=== PATIENT | male | born 1940 | race Caucasian/White ===

== ENCOUNTER 2019-11-01 14:51 | Emergency (ER) | payer MEDICARE, OTHER, SELFPAY ==
[2019-11-01 14:54] VITALS: BP 139/97; PULSE 73; PULSE 74; RESP 16; RESP 20; TEMP 36.6; O2SAT 98; BMI 25.5
--- NOTE | 2019-11-01 15:36 | ED.VIS.GEN ---
History of Present Illness Chief Complaint: Fall Informant: Patient Onset: Weeks Context: Sudden Onset Timing: Continuous Quality: Pain Location: Bilateral low back and right inguinal area Current Severity: Mild Worsened by: Nothing specific Relieved by: Tylenol PM Associated Symptoms: Movement Narrative: Patient is an elderly male who fell 2 weeks ago and presents because of persistent bilateral low back pain and right inguinal pain. His major concern is the right inguinal pain. He feels the mesh has moved. He has not noted a bulge or mass. He has no change in bowels with regards to frequency, consistency, color or size. He is still flagellated. He denies dysuria, frequency, urgency or hematuria. He denies paresthesia, anesthesia or motor weakness lower extremities. He denies saddle paresthesia. He denies incontinence of urine or stool. He is not on an anticoagulant. Prior similar symptoms: No Recent Illness/Hospitalization: No - Past Medical History (1) Hypertension Status: Chronic (2) Allergic rhinitis Status: Chronic (3) GERD (gastroesophageal reflux disease) Status: Chronic Past Medical History - Allergies and Home Meds Allergies/Adverse Reactions: Allergies No Known Allergies Allergy (Verified 11/01/19 14:52) Primary Care Physician: Chirag Bingham MD [Primary Care Provider] - Prior records reviewed: Yes Surgical History: noncontributory Lives: Spouse/ Significant Other Smoking Status: Former smoker Alcohol: None Drugs: None Review of Systems General: Denies: Chills, Fever, Malaise, Sweats Cardiovascular: Denies: Chest pain, Palpitations Respiratory: Denies: Dyspnea, Cough, Dyspnea on exertion Gastrointestinal: Denies: Abdominal pain, Nausea, Vomiting, Diarrhea, Melena, Hematochezia Genitourinary: Denies: Dysuria, Hematuria, Frequency Musculoskeletal: Reports: Back pain. Denies: Myalgias, Arthralgias, Neck pain, Swelling, Extremity Pain, -, - Skin: Denies: Rash, Wounds Neurological: Denies: Headache, Weakness, Numbness Psych: Reports: Anxiety Hematologic: Denies: Easy bruising, Easy bleeding Allergy: Denies: Uticaria, Swelling of the mouth, Swelling of the tongue Physical Exam Vital Signs/Narrative: Vital Signs Temp Pulse Resp BP Pulse Ox 11/01/19 14:54 97.8 F 73 20 H 139/97 H 98 Inital Vital Signs reviewed: Yes General: Well nourished, Well developed, No Acute Distress Head: Normocephalic, Atraumatic Eyes: Perrl, EOMI. Negative for: Pale conjunctiva, Scleral icterus ENT: Moist mucous membranes, No rhinorrhea, TM's clear Neck: Supple, Nontender, No lymphadenopathy, No JVD Cardiovascular: Regular rate, Regular rhythm, No murmurs, Normal S1, Normal S2 Respiratory: No distress, CTA bilaterally, Chest nontender Abdomen: Soft, Nontender, Nondistended, Normal bowel sounds, No masses. Negative for: Hyperactive bowel sounds, Hypoactive bowel sounds, Hepatomegaly, Splenomegaly, Pulsatile mass, Inguinal hernia, Umbilical hernia Rectal: Deferred : - - exam is unremarkable. Back: Nontender, Normal Inspection. Negative for: CVA tenderness, Spinal tenderness Extremities: Nontender, No edema Skin: Normal color, No rash Neurological: Alert, Oriented x3, Cranial nerves II-XII grossly intact, Normal Strength, Normal Sensation, - - Is hard of hearing Psychological: Normal affect Diagnostic/Tx/Re-eval - Medical Decision Making With no objective findings and the fact that the fall occurred 2 weeks ago no imaging was obtained. He was instructed to apply ice and take Tylenol since the Tylenol alleviates his pain. He was instructed follow-up with his doctor if he has no improvement in 1 to 2 weeks. ED Disposition - Plan for ED Patient: Disposition: Home or Assisted Living Diagnosis: Bilateral low back pain, Fall with injury, Right inguinal pain Instructions: ED Back Pain Acute or Chronic Referrals: Chirag Bingham MD [Primary Care Provider] - 10-14 Days if not better
== END 2019-11-01 16:21 | disposition home or self-care (01) ==
PROVIDERS: Emergency Provider Emergency Medicine; PCP Internal Medicine
DX: M54.5 Low back pain (principal); R10.30 Lower abdominal pain, unspecified; I10 Essential (primary) hypertension; K21.9 Gastro-esophageal reflux disease without esophagitis; J30.9 Allergic rhinitis, unspecified; Z87.891 Personal history of nicotine dependence; H91.90 Unspecified hearing loss, unspecified ear; Z91.81 History of falling
CPT/HCPCS: 99283

== ENCOUNTER → 2019-11-02 12:48 | Outpatient (CLI) | payer MEDICARE, OTHER, SELFPAY ==
[2019-11-01 14:54] VITALS: BMI 25.5
--- NOTE | 2019-11-02 12:54 | RAD_ITS ---
STUDY: X-RAY - LUMBAR SPINE REASON FOR EXAM: Male, 79 years old. Disc displacement TECHNIQUE: 3 view(s) of the lumbar spine were obtained. COMPARISON: None FINDINGS: Normal lumbar lordosis. There is a mild dextroscoliosis of the lumbar spine. There is a normal alignment of the vertebrae. 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 No prior study is available for comparison. There is multilevel endplate spondylosis of the lumbar vertebrae. There is multi-level degenerative disc disease with multi-level disc space narrowing. Facet joint osteoarthritis. There is atherosclerotic calcification of the abdominal aorta without a demonstrated aneurysm. RAD/Lumbar Spine 2 or 3 Views IMPRESSION: Degenerative changes of the spine, as detailed above. 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 Electronically Signed: Rufino Vazquez, at 14:11 EDT , Service support ,
--- NOTE | 2019-11-02 12:54 | RAD_ITS ---
STUDY: X-RAY - PELVIS AND RIGHT HIP REASON FOR EXAM: Male, 79 years old. PAIN, STRESS FX? TECHNIQUE: 2 views of the pelvis and hip. COMPARISON: None. FINDINGS: There is a non-specific bowel gas pattern. Normal visualized soft tissue structures. Normal bilateral iliac wings, sacroiliac joints and visualized sacrum. Normal bilateral superior and inferior pubic rami. Normal pubic symphysis. Normal bilateral ischial tuberosities. Normal visualized femoral head. Normal acetabulum. Normal hip joint. RAD/HIP, UNI W/ Pelvis 2-3 Views IMPRESSION: Normal x-ray examination of the pelvis and hip. Electronically Signed: Rufino Vazquez, at 14:13 EDT , Service support ,
== END ==
PROVIDERS: PCP Internal Medicine; Referring Provider Internal Medicine; Visit Provider Internal Medicine
DX: M84.350S Stress fracture, pelvis, sequela (principal); M51.26 Other intervertebral disc displacement, lumbar region
CPT/HCPCS: 72100; 73502

== ENCOUNTER 2020-07-31 14:59 | Outpatient (RCR) | payer MEDICARE, OTHER, SELFPAY | END 2020-07-31 23:59 | LOC: IMMUN 14:59 | PROVIDERS: PCP Internal Medicine; Visit Provider Family Medicine | DX: Z23 Encounter for immunization (principal) | CPT/HCPCS: 0011A; 0012A; 91301 ==

== ENCOUNTER 2021-06-03 11:55 | Inpatient (IN) | payer MEDICARE, OTHER, SELFPAY ==
[2021-06-03] VITALS (9 sets, daily range): BP systolic 139–175; BP diastolic 82–137; PULSE 58–74; RESP 13–23; TEMP 35.6–36.5; O2SAT 94–98; BMI 27.1
--- NOTE | 2021-06-03 12:04 | EKG12_ITS ---
Test Reason : CONFUSION Blood Pressure : / mmHG Vent. Rate : 060 BPM Atrial Rate : 060 BPM P-R Int : 186 ms QRS Dur : 232 ms QT Int : 554 ms P-R-T Axes : 003 266 079 degrees QTc Int : 554 ms AV dual-paced rhythm Abnormal ECG Confirmed by RHONDA BROWNE, YESICA ([id number]), associate entertainment editor MICHAEL PERALTA ([id number]) on 06/05/2021 11:40:59 AM Referred By: STEPHANIE Confirmed By:YESICA ELLIS MD
--- NOTE | 2021-06-03 12:04 | CT_ITS ---
STUDY: CT BRAIN WITHOUT CONTRAST REASON FOR EXAM: Male, 81 years old. Confusion RADIATION DOSAGE (If Supplied By Facility): CTDIvol = ( 44.99 ) mGy, DLP = ( 880.47 ) mGycm TECHNIQUE: Transaxial CT imaging of the brain was performed without administration of intravenous contrast material. Individualized dose optimization techniques were used for this CT. COMPARISON: No relevant priors. FINDINGS: Normal soft tissue structures. Normal calvarium. There is moderate cerebral atrophy with widening of the extra-axial spaces and ventricular dilatation. There are areas of decreased attenuation within the white matter tracts of the supratentorial brain, consistent with microvascular disease changes. There are small punctate calcifications of the basal ganglia which are seen in the aging brain as a normal variant. Normal brainstem. Normal cerebellum. There is no intracranial hemorrhage. There are no findings of an acute ischemic infarction. Normal visualized paranasal sinuses. CT/Brain/Head without Contrast IMPRESSION: No acute intracranial hemorrhage or mass effect. Electronically Signed: Epi Das MD ([place]) at 13:01 EST , Service support ,
--- NOTE | 2021-06-03 12:07 | EDS_ITS ---
HPI History of Present Illness Chief Complaint: Confusion Detail of Chief Complaint: Increased confusion that started this morning Informant: patient and EMS Narrative Narrative: Patient presents to the emergency department via EMS from home. Patient apparently has had increased confusion that the noted however is unclear when it began. Patient apparently went to sit in his chair early this morning and then later when the checked on him he seemed confused. Patient denies headache or chest pain or shortness of breath. He generally feels little bit weak. Patient tells me he thinks he is having a thyroid attack because he has had a cough with some green phlegm. Patient has had the Covid vaccine. He denies falls or head injuries. [facility] Medical History Allergic rhinitis GERD (gastroesophageal reflux disease) Hypertension Home Medications cholecalciferol (vitamin D3) 1,000 unit PO DAILY 11/01/19 [History Last Taken Unknown] fluticasone propionate 1 spray NASAL BID 11/01/19 [History Last Taken Unknown] carvedilol 6.25 mg PO BID 06/03/21 [History Last Taken Unknown] furosemide 40 mg PO DAILY 06/03/21 [History Last Taken Unknown] omeprazole 40 mg PO DAILY 06/03/21 [History Last Taken Unknown] rosuvastatin 40 mg PO QHS 06/03/21 [History Last Taken Unknown] Allergy/AdvReac Type Severity Reaction Status Date / Time No Known Allergies Allergy Verified 06/03/21 11:57 Family History Other Arthritis Asthma H/O ulcer disease Heart disease High cholesterol Hypertension Kidney disease Social History (Updated 05/26/21 @ 10:57 by Karla Pedro NP-C) Smoking Status: Unknown if ever smoked alcohol intake: never substance use type: does not use what type of physical activity do you participate in: other ROS ROS ED ROS Narrative Confusion and generalized weakness Constitutional Constitutional ED: Reports systems reviewed and no addt'l complaints, except as documented; Denies body ache(s), change in weight or chills Eyes Eyes: Denies acute decrease in peripheral vision, change in vision, double vision or loss of vision ENT ENT ED: Reports none; Denies ear pain, lip swelling, loss taste/smell, neck pain, otalgia or sore throat Cardiovascular Cardiovascular: Reports none; Denies abdominal pain, chest pain with activity, leg edema, lightheadedness, palpitations, rapid heart rate or syncope Respiratory/Chest Respiratory/Chest: Reports none and cough; Denies change in mental status, dry cough, dyspnea, hemoptysis, shortness of breath at rest or shortness of breath with exertion Gastrointestinal Gastrointestinal: Reports none; Denies abdominal pain, change in stool character, diarrhea, hematemesis, hematochezia, melena, rectal bleeding or vomiting Genitourinary Genitourinary ED: Reports none; Denies abdominal discomfort, anuria, dysuria, genital pain or polyuria Musculoskeletal Musculoskeletal: Reports none; Denies arthralgias, back pain, difficulty walking, extremity pain, muscle weakness or myalgias Integumentary Reports none; Denies abscess or rash Neurologic Neurologic: Reports none; Denies abnormal gait, confusion, focal weakness, frequent falls, headache(s), loss of vision, numbness, paresthesias, radicular pain, vertigo or weakness Psychiatric Psychiatric: Reports systems reviewed and no addt'l complaints, except as documented and none; Denies behavioral changes, confusion, difficulty concentrating, hallucinations, suicidal ideation, tactile hallucinations or visual hallucinations Endocrine Endocrinology: Denies none, cold intolerance, excessive sweating, fatigue or heat intolerance Hematologic/Lymphatic Hematologic/Lymphatic: Reports none; Denies anemia, easy bleeding or easy bruising Allergic/Immunologic Allergic/Immunologic ED: Denies as per HPI, none, lip swelling, mouth swelling, throat swelling, tongue swelling or hives EXAM Physical Exam Const Vital Signs: 06/03/21 11:57 06/03/21 12:26 06/03/21 13:37 Temperature 96.1 F L 96.1 F L 97.0 F L Temperature Source Axillary Axillary Temporal Pulse Rate 60 61 60 Respiratory Rate 13 22 H 23 H Blood Pressure 158/137 H 159/82 H 168/85 H Blood Pressure Mean 144 107 112 Pulse Ox 95 96 94 Oxygen Delivery Method Room Air Room Air Room Air Positive well nourished and well developed General Appearance ED: well developed and NAD HEENT Reports TM's clear and moist mucous membranes normocephalic and atraumatic; Negative for trauma or tenderness Tympanic Membrane ED: Yes TM's clear Eyes PERRL and EOMs intact bilaterally General Eye ED: Negative for pale conjunctiva or scleral icterus Neck no lymphadenopathy, supple and no JVD General: Negative for tenderness Chest Wall inspection of chest normal and palpation of chest normal Chest: Negative for tenderness Resp normal respiratory effort and clear to auscultation bilaterally Effort and Inspection: Negative for respiratory distress or pain with movement Auscultation: Negative for rhonchi, wheezes or diminished lung sounds Cardio regular rate, regular rhythm, S1 normal heart sound, S2 normal heart sound and no murmurs Peripheral Pulses: pulses 2+ throughout GI normal to inspection, nondistended, normoactive bowel sounds, soft to palpation, non-tender, non-distended and no masses Back/Spine no CVA tenderness and no thoracic nor lumbar tenderness Extremity normal to inspection General Extremety ED: Negative for edema General Extremity: Negative for edema Neuro oriented x3, CN's II-XII intact bilaterally, no sensory deficits noted and gait normal Neuro Narrative: Patient ANO x3 on arrival to emergency department. No focal neurologic deficits noted with an NIH of zero. Patient does at times repeat the same question over again. Sensorium / Orientation: awake, alert, oriented to person, oriented to place and oriented to time Motor Exam: strength 5/5 throughout and strength abnormal Psych mental status grossly normal Skin no rashes or lesions noted and no wounds MDM MDM MDM Narrative Medical decision making narrative: IV line established on arrival. CT scan of the brain without contrast was unremarkable. Patient was noted to have an elevated troponin although he is not having any chest pain and EKG is difficult to interpret at this it is dual paced. Patient was given baby aspirin. Patient was started on Rocephin and Zithromax as well as chest x-ray that showed a right lower lobe infiltrate and he has been coughing. Covid test was negative. Blood cultures ordered and pending. Lactate ordered and pending. Case discussed with hospitalist will evaluate patient for admission. Lab Data Attestation: I reviewed the patient's lab results. Labs: Laboratory Results - last 24 hr 06/03/21 06/03/21 06/03/21 12:19 12:19 12:37 WBC 6.7 RBC 4.61 Hgb 13.8 Hct 44.2 MCV 95.9 H MCH 29.9 MCHC 31.2 L RDW Std Deviation 51.0 H RDW Coeff of Giovani 14.6 Plt Count 176 MPV 10.3 Immature Gran % (Auto) 0.400 Neut % (Auto) 71.6 H Lymph % (Auto) 16.4 L [place] % (Auto) 6.1 Eos % (Auto) 5.1 H Baso % (Auto) 0.4 Absolute Neuts (auto) 4.8 Absolute Lymphs (auto) 1.10 Nucleated RBC % 0 Sodium 144 Potassium 3.7 Chloride 108 H Carbon Dioxide 25.0 Anion Gap 11 BUN 39 H Creatinine 1.64 H Estim Creat Clear Calc 34.73 Est GFR (MDRD) Af Amer 52 L Est GFR (MDRD) Non-Af 43 L BUN/Creatinine Ratio 23.8 H Glucose 99 Calcium 8.8 Troponin I High Sens 196 H* Urine Color Yellow Urine Clarity Clear Urine pH 5.0 Ur Specific [place] 1.020 Urine Protein 30 H Urine Glucose (UA) Normal Urine Ketones Negative Urine Occult Blood Negative Urine Nitrite Negative Urine Bilirubin Negative Urine Urobilinogen Normal Ur Leukocyte Esterase Negative Urine RBC 0 SEEN Urine WBC 0-5 SEEN Ur Squamous Epith Cells 0 SEEN Urine Bacteria 0 SEEN Hyaline Casts 0-5 SEEN Urine Mucus 0 SEEN Radiography Diagnostic Testing: Clinical Impression(s) from Imaging Studies Brain CT 06/03/21 12:04 IMPRESSION: No acute intracranial hemorrhage or mass effect. Electronically Signed: Epi Das MD ([place]) at 13:01 EST , Service support , Chest X-Ray 06/03/21 12:49 IMPRESSION: 1. Right lower lobe infiltrate suggesting pneumonia. Electronically Signed: Epi Das MD ([place]) at 13:04 EST , Service support , 1 view chest x-ray interpreted by myself as right lower lobe infiltrate. Radiology was in agreement. EKG Initial EKG: Attestation: I personally reviewed and interpreted this EKG as follows: Comments: AV dual paced rhythm Discharge Plan Triage Chief Complaint: Confusion ED Provider: Armin Betts Dx/Rx/DC Orders Clinical Impression: Acute confusion, Non-ST elevated myocardial infarction, Pneumonia Prescriptions: No Action fluticasone propionate 1 SPRAY spray,suspension 1 spray NASAL BID RF: 0 cholecalciferol (vitamin D3) 1,000 UNIT tablet 1,000 unit PO DAILY RF: 0 furosemide 40 mg tablet 40 mg PO DAILY RF: 0 carvedilol 6.25 mg tablet 6.25 mg PO BID RF: 0 omeprazole 40 mg capsule,delayed release(DR/EC) 40 mg PO DAILY RF: 0 rosuvastatin 40 mg tablet 40 mg PO QHS RF: 0 Primary Care Provider: Chirag Bingham Referrals: Chirag Bingham MD [Primary Care Provider] - Disposition Disposition: Acute Care Hospital [facility]
[2021-06-03 12:48] LABS: Bacteria 0 SEEN /hpf (None Seen); Mucous, Urine 0 SEEN /hpf (<or=2+); Red Blood Cells-Urine 0 SEEN /hpf (0-5); Squamous Epithelial Cells - UA 0 SEEN /hpf (0-5)
--- NOTE | 2021-06-03 12:49 | RAD_ITS ---
STUDY: X-RAY CHEST REASON FOR EXAM: Male, 81 years old. cough TECHNIQUE: AP COMPARISON: None FINDINGS: Three lead cardiac conduction device is seen via the left subclavian vein with lead tips projecting over the right atrium and right ventricle, respectively, with left atrial lead projecting over the left atrium/posterior cardiac border. Asymmetric opacity in the medial right lower lobe, compared to the left side. There is no demonstrated pleural abnormality. Normal size heart. Normal mediastinum and bernadette. Normal visualized pulmonary arteries. There is atherosclerotic calcification of the aortic arch with tortuosity. No acute bony process. There is no demonstrated abnormality of the visualized soft tissue structures of the upper abdomen. RAD/Chest 1 View (Portable) IMPRESSION: 1. Right lower lobe infiltrate suggesting pneumonia. Electronically Signed: Epi Das MD ([place]) at 13:04 EST , Service support ,
[2021-06-03 12:51] LABS: Absolute Neutrophil Count 4.8 X10^3/uL (2.0-7.7); Basophil# 0.03 X10^3/uL; Basophil% 0.4 % (0-1); Eosinophil# 0.34 X10^3/uL; Eosinophils% 5.1 % (0-5); Hematocrit 44.2 % (40-54); Hemoglobin 13.8 g/dL (13.0-16.5); Lymphocyte % 16.4 % (19-41); Mean Corp Hgb Conc 31.2 g/dL (32-36); Mean Corpuscular Hgb 29.9 pg (27.0-32.0); Mean Corpuscular Volume 95.9 fL (80-94); Mean Platelet Vol. 10.3 fl (6.2-12.0); Monocyte# 0.41 X10^3/uL; Monocyte% 6.1 % (0-10); NRBC Flagged by Analyzer 0 % (0-5); Neutrophil # 4.81 X10^3/uL (2.7-7.7); Neutrophil % 71.6 % (47-70); Platelet Count 176 K/mm3 (150-450); RBC Distribution Width CV 14.6 % (11.6-14.6); Red Blood Count 4.61 M/mm3 (4.6-6.2); White Blood Count 6.7 K/mm3 (4.4-11.0)
[2021-06-03 12:52] LABS: Color, Urine Yellow (Yellow); Glucose, Dipstick Normal (Normal); Ketone-Dipstick Negative (Negative); Leukocyte Esterase-Dipstick Negative /ul (Negative); Nitrite-Dipstick Negative (Negative); Occult Blood-Urine Negative /ul (Negative); Protein-Dipstick 30 mg/dl (Negative); Urine Bilirubin Dipstick Negative (Negative); Urine Clarity Clear (Clear); Urine Urobilinogen Normal (Normal)
[2021-06-03 12:58] LABS: Hyaline Cast 0-5 SEEN /lpf (0-5); White Blood Cells 0-5 SEEN /hpf (0-5)
[2021-06-03] MEDS: 0.9% Normal Saline 1,000 ML 150 ML IV (13:00)
[2021-06-03 13:11] LABS: Anion Gap 11 (5-15); BUN 39 mg/dL (7-18); BUN/Creat Ratio 23.8 RATIO (10-20); Calcium,Total 8.8 mg/dL (8.5-10.1); Chloride 108 mmol/L (98-107); Creatinine, Serum 1.64 mg/dL (0.70-1.30); EST Glomerular Filtration Rate 43 mL/min (>60); Est Glom Filt Rate - Afr Amer 52 mL/min (>60); Estimated Creatinine Clearance 34.73 ml/min; Glucose 99 mg/dL (74-106); Potassium 3.7 mmol/L (3.5-5.1); Sodium Level 144 mmol/L (136-145); Troponin-I HS 196 pg/mL (3.0-78.0)
[2021-06-03] MEDS: Aspirin 81 MG TAB.CHEW 324 MG PO (13:35)
--- NOTE | 2021-06-03 13:41 | PCM.HP.STD ---
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 ED on 06/03/21 with history of being brought in via EMS from home secondary to confusion, onset while he was seated in his chair, repeating the same questions over and over again, noted last well reportedly appropriate earlier in the AM. Upon ED presentation he was appropriate with orientation x > 3 but reported having had recent onset of cough, fatigue, malaise. Upon ED evaluation patient still confused even with appropriate answer to orientation questions thus may be waxing and waning. denies any recent fevers or chills, nausea, emesis, diarrhea. Work-up in the ED included T 97, heart rate 60, BP 160/85, respiratory rate 23, 94% on room air, CBC with WBC 6.7, hemoglobin 13.8, platelet 176 without marked shift, BMP with chloride 108, BUN/creatinine 39/1.64, troponin high-sensitivity initial 196, chest x-ray with right lower lobe infiltrate suggestive of pneumonia, CT of the brain with no acute intracranial hemorrhage or mass-effect, blood culture x2 pending per ED. in the ED patient ministered Ceftin and azithromycin. [facility] Medical History (Updated 06/03/21 @ 14:[address] Elena Neely MD) Allergic rhinitis GERD (gastroesophageal reflux disease) HLD (hyperlipidemia) Hypertension Tachy-thomas syndrome Home Medications cholecalciferol (vitamin D3) 1,000 unit PO DAILY 11/01/19 [History Last Taken Unknown] fluticasone propionate 1 spray NASAL BID 11/01/19 [History Last Taken Unknown] acetaminophen 500 - 1,000 mg PO Q6H PRN 06/03/21 [History Last Taken 06/03/21] carvedilol 6.25 mg PO BID 06/03/21 [History Last Taken Unknown] furosemide 40 mg PO DAILY 06/03/21 [History Last Taken Unknown] omeprazole 40 mg PO DAILY 06/03/21 [History Last Taken Unknown] polyethylene glycol 3350 [Miralax] 17 g PO DAILY 06/03/21 [History Last Taken 06/03/21] rosuvastatin 40 mg PO QHS 06/03/21 [History Last Taken Unknown] Allergy/AdvReac Type Severity Reaction Status Date / Time No Known Allergies Allergy Verified 06/03/21 11:57 Family History (Updated 06/03/21 @ 14:[address] Elena Neely MD) Mother Heart disease Arthritis Asthma High cholesterol Hypertension Father Heart disease Arthritis Asthma High cholesterol Hypertension Other H/O ulcer disease Kidney disease Surgical History (Updated 06/03/21 @ 14:[address] Elena Neely MD) S/P cardiac pacemaker procedure Social History (Updated 06/03/21 @ 14:[address] Elena Neely MD) household members: spouse Smoking Status: Never smoker alcohol intake: never substance use type: does not use what type of physical activity do you participate in: other ROS ROS Narrative Admission Review of Systems: CONSTITUTIONAL: No weight loss, fever, chills, + weakness or fatigue. HEENT: Eyes: No visual loss, blurred vision, double vision or yellow sclerae. Ears, Nose, Throat: No hearing loss, sneezing, congestion, runny nose or sore throat. SKIN: No rash or itching, lesions, wounds. CARDIOVASCULAR: No chest pain, chest pressure or chest discomfort, palpitations, edema, orthopnea, syncopal events. RESPIRATORY: + shortness of breath, cough with moderate sputum, No wheezing, hemoptysis. GASTROINTESTINAL: + anorexia, No nausea, vomiting or diarrhea, abdominal pain, melena, BRBPR. GENITOURINARY: No dysuria, frequency, urgency or retention. NEUROLOGICAL: No headache, dizziness, syncope, paralysis, ataxia, numbness or tingling in the extremities, focal weakness, change in bowel or bladder control, seizure. MUSCULOSKELETAL: + muscle, back pain, joint pain or stiffness. HEMATOLOGIC: No anemia, bleeding or bruising. LYMPHATICS: No enlarged nodes. No history of splenectomy. PSYCHIATRIC: No history of depression or anxiety. ENDOCRINOLOGIC: No reports of sweating, cold or heat intolerance. No polyuria or polydipsia. ALLERGIES: No history of asthma, hives, eczema or rhinitis. Vital Signs Vital Signs Vital Signs: 06/03/21 11:57 06/03/21 12:26 06/03/21 13:37 Temperature 96.1 F L 96.1 F L 97.0 F L Temperature Source Axillary Axillary Temporal Pulse Rate 60 61 60 Respiratory Rate 13 22 H 23 H Blood Pressure 158/137 H 159/82 H 168/85 H Blood Pressure Mean 144 107 112 Pulse Ox 95 96 94 Oxygen Delivery Method Room Air Room Air Room Air Weight Weight: 183 lb 10.321 oz Body Mass Index (BMI) 27.1 Physical Exam Narrative Physical Examination: General: Awake, alert, oriented to self, place and some recent events but still appears confused although transiently did return to baseline per ED physician but this was only to some orientation questions and when you ask further he does appear still to be encephalopathic, remains cooperative and following commands, no acute distress. Skin: Normal color, normal turgor, no icterus, no cyanosis. HEENT: AT/NC, EOMI, PERRLA, mildly dry MM, no carotid bruits or JVD noted. Lungs: Diminished, greater bases, right greater than left, mildly increased respiratory rate, no rales, ronchi or wheezing. Heart: Paced; no gallop, rub audible. Abdomen: Soft, overweight, NTTP, ND, distant mildly hyperactive BS, no HSM. Extremities: No cyanosis, no clubbing, chronic bilateral lower extremity edema, right greater than left w/ ankle to [place] 2+. Neurological: Patient awake, alert, oriented as noted above, cognitive function suspect not baseline intact but improving; pupils equally reactive to light and accommodation, cranial nerves II-XII grossly normal, moving all 4 extremities, no focal deficits, strength moderately to severely global decreased. Psychiatric: Affect appears fatigued otherwise normal, no acute evidence of depressive or anxiety feelings. Results Lab / Micro Data Result Diagrams: 06/03/21 12:19 06/03/21 12:19 Labs: Laboratory Results - last 24 hr 06/03/21 12:19: WBC 6.7, RBC 4.61, Hgb 13.8, Hct 44.2, MCV 95.9 H, MCH 29.9, MCHC 31.2 L, RDW Std Deviation 51.0 H, RDW Coeff of Giovani 14.6, Plt Count 176, MPV 10.3, Immature Gran % (Auto) 0.400, Neut % (Auto) 71.6 H, Lymph % (Auto) 16.4 L, [place] % (Auto) 6.1, Eos % (Auto) 5.1 H, Baso % (Auto) 0.4, Absolute Neuts (auto) 4.8, Absolute Lymphs (auto) 1.10, Nucleated RBC % 0 06/03/21 12:19: Sodium 144, Potassium 3.7, Chloride 108 H, Carbon Dioxide 25.0, Anion Gap 11, BUN 39 H, Creatinine 1.64 H, Estim Creat Clear Calc 34.73, Est GFR (MDRD) Af Amer 52 L, Est GFR (MDRD) Non-Af 43 L, BUN/Creatinine Ratio 23.8 H, Glucose 99, Calcium 8.8, Troponin I High Sens 196 H* 06/03/21 12:37: Urine Color Yellow, Urine Clarity Clear, Urine pH 5.0, Ur Specific [place] 1.020, Urine Protein 30 H, Urine Glucose (UA) Normal, Urine Ketones Negative, Urine Occult Blood Negative, Urine Nitrite Negative, Urine Bilirubin Negative, Urine Urobilinogen Normal, Ur Leukocyte Esterase Negative, Urine RBC 0 SEEN, Urine WBC 0-5 SEEN, Ur Squamous Epith Cells 0 SEEN, Urine Bacteria 0 SEEN, Hyaline Casts 0-5 SEEN, Urine Mucus 0 SEEN Micro: Microbiology 06/03/21 12:35 Nasal Secretion SARS-CoV-2 Antigen (Rapid) - Final Radiology Impression Brain CT 06/03/21 12:04 IMPRESSION: No acute intracranial hemorrhage or mass effect. Electronically Signed: Epi Das MD (Brooks) at 13:01 EST , Service support , Chest X-Ray 06/03/21 12:49 IMPRESSION: 1. Right lower lobe infiltrate suggesting pneumonia. 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 ED on 06/03/21 with history of being brought in via EMS from home secondary to confusion, onset while he was seated in his chair, repeating the same questions over and over again, noted last well reportedly appropriate earlier in the AM with eventually reported fatigue, malaise, cough. #1. Acute Encephalopathy secondary to Acute Pneumonia, some concern for possible aspiration: CXR in the ED w/ right lower lobe infiltrate suggestive of pneumonia. Will admit to PCU given #2, maintain on oxygen with wean as tolerated to room air, PRN albuterol, maintained on IV Zosyn pending Speech assessment, HOB, IS parameters w/ pending sputum cultures and urine antigens as well as full respiratory viral panel and COVID PCR to be cautious although has been vaccinated. Bld cx x 2 obtained in the ED. Procalcitonin requested. #2. Indeterminate cardiac enzyme: EKG in ED paced, CXR w/ RLL infiltrate, initial trop 196. Will place on a monitored bed to assure no acute myocardial infarction with serial cardiac enzymes and EKGs. Mag pending. FLP in AM. Will maintain on heparin drip until clear where his enzymes are trending. ECHO requested. ASA, NG, morphine. #3. Hypertension: Continue home regimen including Coreg, Lasix however low threshold to hold given unclear underlying renal disease, if function worsens will hold nephrotoxic regimen, PRN hydralazine. #4. Hyperlipidemia: Continue home statin regimen. AM FLP. #5. Chronic Kidney Disease stage III unclear subtype versus ARCADIO: Admission BUN/Cr 39/1.64, baseline renal function unknown, repeat BMP in AM. #6. GERD: We will continue patient home PPI. #7. 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 Duke per report, s/p pacemaker, placed ~ 1 year prior to current visit. #8. DVT prophylaxis: SCDs, heparin drip. #9. CODE status: Patient not sure that there is an actual HCPOA or living will in place. Given confusion and current presentation, discussed CODE status at length including difference between FULL code, DNR-CCA and DNR-CC status. Following discussions about the differences in these status, requested Full Code status. Advanced Care Planning Face to Face Time: 16 minutes. Charges/Coding Visit Charges Inpatient E&M: 95195 Init Hosp L3 Procedures Hospitalists Procedures: 81140 Advncd Care Plan 30 Min
--- NOTE | 2021-06-03 14:03 | NURSING ---
PCU WHITE NSTEMI, PNEUMONIA, CONFUSION
[2021-06-03 14:07] LABS: Lactic Acid 1.4 mmol/L (0.4-1.9)
[2021-06-03] MEDS: Ceftriaxone 1 GM/50 ML BAG IV (14:21)
[2021-06-03 14:39] LABS: Magnesium 2.6 mg/dL (1.6-2.6)
[2021-06-03 14:46] LABS: International Normalized Ratio 1.2; Partial Thromboplast Time 31.3 Seconds (24.1-36.2); Prothrombin Time (Protime)PT. 14.8 SECONDS (11.7-14.9)
[2021-06-03 15:02] LABS: Procalcitonin 0.16 ng/mL (0.00-0.09)
--- NOTE | 2021-06-03 15:03 | VDLE_ITS ---
Reason For Study: Swelling RIGHT GSV is normal. CFV is compressible, spontaneous, phasic, competent and demonstrates normal augmentation. FV is compressible, spontaneous, phasic, competent and demonstrates normal augmentation. POP V is compressible, spontaneous, phasic, competent and demonstrates normal augmentation. T/P Trunk is compressible. PTV is compressible. RT PerV is compressible. Procedure This is a venous duplex using B-mode, color flow and spectral Doppler. Exam performed portable in patient room. A preliminary report was called and/or faxed to Nancy AGUIRRE. VL/Venous Duplex US, Unilateral Interpretation Summary There is no evidence of right lower extremity deep vein thrombosis. Right great saphenous vein appears patent and compressible segmentally. Suggestion of pulsitile venous marina w consistent with proximal venous hypertension or obstruction. Clinical correlation would be appr opriate. Ordering Physician: Elena Neely Referring Physician: Chirag Bingham Performed By: Hanh Reyes, RASHAD, RVT
--- NOTE | 2021-06-03 15:03 | ECHOD_ITS ---
Reason For Study: NSTEMI Procedure This was a 2D Doppler, Color Flow transthoracic echocardiogram. Exam performed portable in patient room. Left Ventricle Normal LV size. Severe concentric left ventricular hypertrophy. The estimated ejection fraction is 20 %. There is severe global hypokinesis of the left ventricle. Right Ventricle Normal RV size. ICD or pacer leads identified within the right ventricle. Normal systolic function. Atria The left atrium is moderately enlarged. The right atrium is moderately enlarged. Mitral Valve Normal mitral valve. Mild (1+) eccentric mitral valve insufficiency. Tricuspid Valve Normal tricuspid valve. Mild (1+) tricuspid valve insufficiency. Pulmonary artery systolic pressure is 34 mmHg. Aortic Valve Trisinus/trileaflet aortic valve. Peak aortic valve gradient 21 mmHg. Mean aortic valve gradient 10 mmHg. Mild (1+) aortic valve insufficiency. Pulmonic Valve Normal pulmonic valve. Great Vessels Normal aortic root. The pulmonary artery is normal size. The inferior vena cava is dilated. Pericardium/Pleural No pericardial effusion. MMode/2D Measurements & Calculations LVIDd: 5.4 cm IVSd: 1.8 cm LVOT diam: 2.0 cm LVIDs: 5.2 cm LVPWd: 1.9 cm LVOT area: 3.0 cm2 FS: 4.5 % LAV(MOD-bp): 98.9 ml LA A4 area: 27.0 cm2 RA A4 area: 27.1 cm2 LAV(MOD-bp) Indexed: 49.7 ml/m2 LAV(MOD-sp2): 101.2 ml LAV(MOD-sp4): 95.0 ml Time Measurements MV dec time: 0.21 sec Doppler Measurements & Calculations MV E max jamir: 73.3 cm/sec MV V2 max: 68.6 cm/sec MV P1/2t max jaimr: 68.9 cm/sec MV A max jamir: 50.6 cm/sec MV max P.9 mmHg MV P1/2t: 73.0 msec MV E/A: 1.4 MV V2 mean: 31.5 cm/sec MV dec slope: 276.6 cm/sec2 MV mean P.49 mmHg MVA(P1/2t): 3.0 cm2 MV V2 VTI: 18.7 cm MVA(VTI): 2.2 cm2 Ao V2 max: 229.5 cm/sec AI max jamir: 397.4 cm/sec LV V1 max: 75.6 cm/sec Ao max P.1 mmHg AI max P.2 mmHg LV V1 max P.3 mmHg Ao V2 mean: 140.3 cm/sec AI dec slope: 268.3 cm/sec2 LV V1 mean P.0 mmHg Ao mean P.7 mmHg AI P1/2t: 433.9 msec LV V1 mean: 46.6 cm/sec Ao V2 VTI: 39.6 cm LV V1 VTI: 13.8 cm JENNIFER(I,D): 1.1 cm2 JENNIFER(V,D): 1.00 cm2 SV(LVOT): 41.7 ml PA V2 max: 67.2 cm/sec TR max jamir: 270.8 cm/sec TR max P.4 mmHg ECHO/Echo Complete Interpretation Summary Normal LV size. Severe concentric left ventricular hypertrophy. The estimated ejection fraction is 20 %. There is severe global hypokinesis of the left ventricle. The left atrium is moderately enlarged. The right atrium is moderately enlarged. Pulmonary artery systolic pressure is 34 mmHg. Mild (1+) aortic valve insufficiency. Ordering Physician: Elena Neely Referring Physician: Chirag Bingham Performed By: Satnam Allen RCS
[2021-06-03] MEDS: 0.9% Normal Saline 1,000 ML 100 ML IV (15:38)
--- NOTE | 2021-06-03 15:49 | PCS.PANDOC ---
PANDEMIC DOCUMENTATION INITIATED: Date: 02/23/2021 Time: 190
[2021-06-03] MEDS: Heparin Injection (Vial) 5,000 UNIT/ML VIAL 6000 UNIT IV (16:31)
[2021-06-03] MEDS: HEPARIN/D5w 25,000 UNITS 25,000 UNITS/250 ML IV.SOLN. 12 UNITS IV (16:33)
[2021-06-03 16:36] LABS: Troponin-I HS 178 pg/mL (3.0-78.0)
[2021-06-03 20:46] LABS: Troponin-I HS 137 pg/mL (3.0-78.0)
[2021-06-03] MEDS: Fluticasone 0.05% 1 SPRAY NASAL.SRY NASAL (21:45)
[2021-06-03] MEDS: Atorvastatin Calcium 80 MG Tablet PO (21:45)
[2021-06-03] MEDS: Acetaminophen 325 MG Tablet 650 MG PO (21:48)
--- NOTE | 2021-06-03 22:21 | PCM.PN.BLA ---
Progress Note Nurse reports bright red blood per rectum while the patient's was on heparin drip. High-sensitivity troponin is marginally elevated. Will stop heparin drip. Change Protonix 40 mg p.o. daily to Protonix IV twice daily. CBC already scheduled in the a.m., continued.
[2021-06-03] MEDS: Carvedilol 6.25 MG Tablet PO (23:36)
[2021-06-04] VITALS (9 sets, daily range): BP systolic 132–160; BP diastolic 73–92; PULSE 60–114; RESP 16–18; TEMP 36.2–37; O2SAT 94–100
[2021-06-04] MEDS: DiphenhydrAMINE 25 MG Capsule PO ×2 (01:53→20:18)
[2021-06-04] MEDS: Acetaminophen 325 MG Tablet 650 MG PO ×2 (01:53→20:18)
--- NOTE | 2021-06-04 05:55 | EKG12_ITS ---
Test Reason : AM EKG Blood Pressure : / mmHG Vent. Rate : 060 BPM Atrial Rate : 060 BPM P-R Int : 172 ms QRS Dur : 234 ms QT Int : 582 ms P-R-T Axes : 073 -82 102 degrees QTc Int : 582 ms Atrial-paced rhythm Right bundle branch block Left anterior fascicular block Bifascicular block Left ventricular hypertrophy with repolarization abnormality Abnormal ECG When compared with ECG of 03-JUN-2021 12:20, MANUAL COMPARISON REQUIRED, DATA IS UNCONFIRMED Confirmed by RHONDA BROWNE, YESICA ([id number]), tape editor MICHAEL PERALTA ([id number]) on 06/05/2021 11:52:23 AM Referred By: SYLWIA Confirmed By:YESICA ELLIS MD
[2021-06-04 06:07] LABS: Absolute Lymphocyte Count 1.06 X10^3/uL (0.83-4.51); Absolute Neutrophil Count 3.6 X10^3/uL (2.0-7.7); Basophil# 0.05 X10^3/uL; Basophil% 0.9 % (0-1); Eosinophil# 0.29 X10^3/uL; Eosinophils% 5.3 % (0-5); Hematocrit 41.5 % (40-54); Hemoglobin 13.1 g/dL (13.0-16.5); Lymphocyte # 1.06 X10^3/ul (0.83-4.51); Lymphocyte % 19.5 % (19-41); Mean Corp Hgb Conc 31.6 g/dL (32-36); Mean Corpuscular Hgb 29.9 pg (27.0-32.0); Mean Corpuscular Volume 94.7 fL (80-94); Mean Platelet Vol. 10.4 fl (6.2-12.0); Monocyte# 0.41 X10^3/uL; Monocyte% 7.5 % (0-10); NRBC Flagged by Analyzer 0 % (0-5); Neutrophil # 3.61 X10^3/uL (2.7-7.7); Neutrophil % 66.4 % (47-70); Platelet Count 154 K/mm3 (150-450); RBC Distribution Width CV 14.4 % (11.6-14.6); RBC Distribution Width SD 49.6 fl (35.1-43.9); Red Blood Count 4.38 M/mm3 (4.6-6.2); White Blood Count 5.4 K/mm3 (4.4-11.0)
--- NOTE | 2021-06-04 06:22 | RAD_ITS ---
STUDY: X-RAY CHEST REASON FOR EXAM: Male, 81 years old. Dyspnea, PNA TECHNIQUE: Single AP portable view of the chest. COMPARISON: 06/03/2021 FINDINGS: There is a multilead permanent pacemaker. There are superimposed monitor leads. Hazy opacification in the right lung base. Slightly more pronounced since previous examination. Mild vascular prominence in the upper lung parenchyma. There is no demonstrated pleural abnormality. There is moderate cardiac enlargement. Normal mediastinum and bernadette. Normal visualized pulmonary arteries. There is atherosclerotic calcification of the aortic arch with tortuosity. The spine and upper abdominal soft tissues are obscured. RAD/Chest 1 View (Portable) IMPRESSION: Airspace disease right base slightly more pronounced. Possible mild congestion. Stable cardiomegaly, atherosclerosis and post surgical changes. Electronically Signed: Pauline Finley MD at 9:02 EST , Service support ,
--- NOTE | 2021-06-04 06:29 | PN.HOSP_ITS ---
Objective Data Objective Data Vital Signs: Vital Signs Temp Pulse Resp BP Pulse Ox 97.7 F L 60 18 153/91 H 94 06/04/21 03:55 06/04/21 03:55 06/04/21 03:55 06/04/21 03:55 06/04/21 03:55 Oxygen Flow Rate (L/min) 2 Oxygen Delivery Method Nasal Cannula Weight: 179 lb 14.355 oz Body Mass Index (BMI) 27.1 Intake & Output: Intake and Output for Last 24 Hours 06/02/21 06/03/21 06/04/21 23:59 23:59 23:59 Intake Total 807.7 / 1217.7 1460 / 1460 Balance 807.7 / 1217.7 1460 / 1460 Lab / Micro Data Result Diagrams: 06/04/21 05:22 06/03/21 12:19 Labs: Laboratory Results - last 24 hr 06/03/21 12:19: WBC 6.7, RBC 4.61, Hgb 13.8, Hct 44.2, MCV 95.9 H, MCH 29.9, MCHC 31.2 L, RDW Std Deviation 51.0 H, RDW Coeff of Giovani 14.6, Plt Count 176, MPV 10.3, Immature Gran % (Auto) 0.400, Neut % (Auto) 71.6 H, Lymph % (Auto) 16.4 L, [place] % (Auto) 6.1, Eos % (Auto) 5.1 H, Baso % (Auto) 0.4, Absolute Neuts (auto) 4.8, Absolute Lymphs (auto) 1.10, Nucleated RBC % 0 06/03/21 12:19: Sodium 144, Potassium 3.7, Chloride 108 H, Carbon Dioxide 25.0, Anion Gap 11, BUN 39 H, Creatinine 1.64 H, Estim Creat Clear Calc 34.73, Est GFR (MDRD) Af Amer 52 L, Est GFR (MDRD) Non-Af 43 L, BUN/Creatinine Ratio 23.8 H, Glucose 99, Calcium 8.8, Troponin I High Sens 196 H* 06/03/21 12:19: Lactic Acid 1.4 06/03/21 12:19: PT 14.8, INR 1.2, APTT 31.3 06/03/21 12:19: Magnesium 2.6 06/03/21 12:19: Procalcitonin 0.16 H 06/03/21 12:37: Urine Color Yellow, Urine Clarity Clear, Urine pH 5.0, Ur Specific [place] 1.020, Urine Protein 30 H, Urine Glucose (UA) Normal, Urine Ketones Negative, Urine Occult Blood Negative, Urine Nitrite Negative, Urine Bilirubin Negative, Urine Urobilinogen Normal, Ur Leukocyte Esterase Negative, Urine RBC 0 SEEN, Urine WBC 0-5 SEEN, Ur Squamous Epith Cells 0 SEEN, Urine Bacteria 0 SEEN, Hyaline Casts 0-5 SEEN, Urine Mucus 0 SEEN 06/03/21 15:49: Troponin I High Sens 178 H* 06/03/21 16:36: COVID-19 (LINDY) Not Detected 06/03/21 19:28: Troponin I High Sens 137 H* 06/03/21 22:40: APTT 185.0 H* 06/04/21 05:22: WBC 5.4, RBC 4.38 L, Hgb 13.1, Hct 41.5, MCV 94.7 H, MCH 29.9, MCHC 31.6 L, RDW Std Deviation 49.6 H, RDW Coeff of Giovani 14.4, Plt Count 154, MPV 10.4, Immature Gran % (Auto) 0.400, Neut % (Auto) 66.4, Lymph % (Auto) 19.5, [place] % (Auto) 7.5, Eos % (Auto) 5.3 H, Baso % (Auto) 0.9, Absolute Neuts (auto) 3.6, Absolute Lymphs (auto) 1.06, Nucleated RBC % 0 Micro: Microbiology 06/03/21 16:36 Mucosa - Nose Respiratory Panel (PCR) - Final 06/03/21 12:37 Urine Catheter - Catheter Legionella Antigen - Final 06/03/21 12:37 Urine Catheter - Catheter Streptococcus pneumoniae Antigen (M - Final 06/03/21 12:35 Nasal Secretion SARS-CoV-2 Antigen (Rapid) - Final Radiography Diagnostic Testing: Radiology Impression Brain CT 06/03/21 12:04 IMPRESSION: No acute intracranial hemorrhage or mass effect. Electronically Signed: Epi Das MD (Brooks) at 13:01 EST , Service support , Chest X-Ray 06/03/21 12:49 IMPRESSION: 1. Right lower lobe infiltrate suggesting pneumonia. Electronically Signed: Epi Das MD (Brooks) at 13:04 EST , Service support , Echocardiogram 06/03/21 15:03 Interpretation Summary Normal LV size. Severe concentric left ventricular hypertrophy. The estimated ejection fraction is 20 %. There is severe global hypokinesis of the left ventricle. The left atrium is moderately enlarged. The right atrium is moderately enlarged. Pulmonary artery systolic pressure is 34 mmHg. Mild (1+) aortic valve insufficiency. Ordering Physician: Elena Neely Referring Physician: Chirag Bingham Performed By: Satnam Allen RCS Venous Doppler Study 06/03/21 15:03 Interpretation Summary There is no evidence of right lower extremity deep vein thrombosis. Right great saphenous vein appears patent and compressible segmentally. Suggestion of pulsitile venous flow consistent with proximal venous hypertension or obstruction. Clinical correlation would be appropriate. Ordering Physician: Elena Neely Referring Physician: Chirag Bingham Performed By: Hanh Reyes, RASHAD, RVT
[2021-06-04 06:41] LABS: ALB/GLOB Ratio 0.6 RATIO (0.9-2.4); AST(SGOT) 26 U/L (15-37); Alanine Aminotransfer ALT/SGPT 32 U/L (16-61); Albumin, Serum 2.6 g/dL (3.2-5.0); Alkaline Phosphatase 118 U/L (45-117); Anion Gap 9 (5-15); BUN 38 mg/dL (7-18); BUN/Creat Ratio 27.1 RATIO (10-20); Calcium,Total 8.1 mg/dL (8.5-10.1); Chloride 111 mmol/L (98-107); Cholesterol 93 mg/dL (200); EST Glomerular Filtration Rate 52 mL/min (>60); Est Glom Filt Rate - Afr Amer 62 mL/min (>60); Estimated Creatinine Clearance 40.68 ml/min; Glucose 98 mg/dL (74-106); High Density Lipoprotein 32 mg/dL; Potassium 3.5 mmol/L (3.5-5.1); Protein, Total 6.6 g/dL (6.4-8.2); Sodium Level 141 mmol/L (136-145); Triglycerides 100 mg/dL; Very Low Density Lipoprotein 20 mg/dL (5-40)
[2021-06-04 07:10] LABS: Base Excess -4 mmol/L (-2 to +2); Bicarbonate 21.1 mmol/L (22-26); Blood Gas Specimen Type ART; O2 Delivery Device Cannula; PO2 94 mmHG (75-100); SITE L Brach; SO2 98 % (95-99); Total Carbon Dioxide 22 mmol/L; pCO2 33.1 mmHg (35-45); pH 7.41 (7.35-7.45)
[2021-06-04 08:16] LABS: Partial Thromboplast Time 32.8 Seconds (24.1-36.2)
[2021-06-04] MEDS: Aspirin 81 MG TAB.CHEW PO (09:35)
[2021-06-04] MEDS: Furosemide 40 MG Tablet PO (09:35)
[2021-06-04] MEDS: Carvedilol 6.25 MG Tablet PO ×2 (09:35→20:18)
--- NOTE | 2021-06-04 09:53 | PN.HOSP_ITS ---
Documented by User: Maria T Woodall NP-C 06/04/21 10:22 Subjective Subjective Patient seen and examined. Patient is lying in bed eyes closed oh no distress noted. Patient drowsy this morning, but arousable. Objective Data Objective Data Vital Signs: Vital Signs Temp Pulse Resp BP Pulse Ox 97.2 F L 61 16 132/73 H 97 06/04/21 09:21 06/04/21 09:21 06/04/21 09:21 06/04/21 09:21 06/04/21 09:21 Oxygen Flow Rate (L/min) 2 Oxygen Delivery Method Nasal Cannula Weight: 179 lb 14.355 oz Body Mass Index (BMI) 27.1 Intake & Output: Intake and Output for Last 24 Hours 06/02/21 06/03/21 06/04/21 23:59 23:59 23:59 Intake Total 807.7 / 1217.7 1660 / 1660 Balance 807.7 / 1217.7 1660 / 1660 Lab / Micro Data Result Diagrams: 06/04/21 05:22 06/04/21 05:22 Labs: Laboratory Results - last 24 hr 06/03/21 12:19: WBC 6.7, RBC 4.61, Hgb 13.8, Hct 44.2, MCV 95.9 H, MCH 29.9, MCHC 31.2 L, RDW Std Deviation 51.0 H, RDW Coeff of Giovani 14.6, Plt Count 176, MPV 10.3, Immature Gran % (Auto) 0.400, Neut % (Auto) 71.6 H, Lymph % (Auto) 16.4 L, [place] % (Auto) 6.1, Eos % (Auto) 5.1 H, Baso % (Auto) 0.4, Absolute Neuts (auto) 4.8, Absolute Lymphs (auto) 1.10, Nucleated RBC % 0 06/03/21 12:19: Sodium 144, Potassium 3.7, Chloride 108 H, Carbon Dioxide 25.0, Anion Gap 11, BUN 39 H, Creatinine 1.64 H, Estim Creat Clear Calc 34.73, Est GFR (MDRD) Af Amer 52 L, Est GFR (MDRD) Non-Af 43 L, BUN/Creatinine Ratio 23.8 H, Glucose 99, Calcium 8.8, Troponin I High Sens 196 H* 06/03/21 12:19: Lactic Acid 1.4 06/03/21 12:19: PT 14.8, INR 1.2, APTT 31.3 06/03/21 12:19: Magnesium 2.6 06/03/21 12:19: Procalcitonin 0.16 H 06/03/21 12:37: Urine Color Yellow, Urine Clarity Clear, Urine pH 5.0, Ur Specific [place] 1.020, Urine Protein 30 H, Urine Glucose (UA) Normal, Urine Ketones Negative, Urine Occult Blood Negative, Urine Nitrite Negative, Urine Bilirubin Negative, Urine Urobilinogen Normal, Ur Leukocyte Esterase Negative, Urine RBC 0 SEEN, Urine WBC 0-5 SEEN, Ur Squamous Epith Cells 0 SEEN, Urine Bacteria 0 SEEN, Hyaline Casts 0-5 SEEN, Urine Mucus 0 SEEN 06/03/21 15:49: Troponin I High Sens 178 H* 06/03/21 16:36: COVID-19 (LINDY) Not Detected 06/03/21 19:28: Troponin I High Sens 137 H* 06/03/21 22:40: APTT 185.0 H* 06/04/21 05:22: WBC 5.4, RBC 4.38 L, Hgb 13.1, Hct 41.5, MCV 94.7 H, MCH 29.9, MCHC 31.6 L, RDW Std Deviation 49.6 H, RDW Coeff of Giovani 14.4, Plt Count 154, MPV 10.4, Immature Gran % (Auto) 0.400, Neut % (Auto) 66.4, Lymph % (Auto) 19.5, M bandra % (Auto) 7.5, Eos % (Auto) 5.3 H, Baso % (Auto) 0.9, Absolute Neuts (auto) 3.6, Absolute Lymphs (auto) 1.06, Nucleated RBC % 0 06/04/21 05:22: Sodium 141, Potassium 3.5, Chloride 111 H, Carbon Dioxide 21.0, Anion Gap 9, BUN 38 H, Creatinine 1.40 H, Estim Creat Clear Calc 40.68, Est GFR (MDRD) Af Amer 62, Est GFR (MDRD) Non-Af 52 L, BUN/Creatinine Ratio 27.1 H, Glucose 98, Calcium 8.1 L, Total Bilirubin 0.70, AST 26, ALT 32, Alkaline Phosphatase 118 H, Total Protein 6.6, Albumin 2.6 L, Globulin 4.0, Albumin/Globulin Ratio 0.6 L, Triglycerides 100, Cholesterol 93, LDL Cholesterol 41, VLDL Cholesterol 20, HDL Cholesterol 32 L 06/04/21 05:25: APTT 32.8 06/04/21 06:28: Ammonia Cancelled 06/04/21 07:36: Ammonia 27.0 Micro: Microbiology 06/03/21 16:36 Mucosa - Nose Respiratory Panel (PCR) - Final 06/03/21 12:37 Urine Catheter - Catheter Legionella Antigen - Final 06/03/21 12:37 Urine Catheter - Catheter Streptococcus pneumoniae Antigen (M - Final 06/03/21 12:35 Nasal Secretion SARS-CoV-2 Antigen (Rapid) - Final ABG Data ABG results: ABG 06/04/21 07:03 Specimen Type ART Sample Site L Brach pH 7.41 Bicarbonate Actual 21.1 L Total CO2 22 Base Excess -4 L O2 Saturation 98 ABG pCO2 33.1 L ABG pO2 94 O2 Delivery Device Cannula Liter Flow 2.0 Radiography Diagnostic Testing: Radiology Impression Brain CT 06/03/21 12:04 IMPRESSION: No acute intracranial hemorrhage or mass effect. Electronically Signed: Epi Das MD (Brooks) at 13:01 EST , Service support , Chest X-Ray 06/03/21 12:49 IMPRESSION: 1. Right lower lobe infiltrate suggesting pneumonia. Electronically Signed: Epi Das MD (Brooks) at 13:04 EST , Service support , Echocardiogram 06/03/21 15:03 Interpretation Summary Normal LV size. Severe concentric left ventricular hypertrophy. The estimated ejection fraction is 20 %. There is severe global hypokinesis of the left ventricle. The left atrium is moderately enlarged. The right atrium is moderately enlarged. Pulmonary artery systolic pressure is 34 mmHg. Mild (1+) aortic valve insufficiency. ___ Ordering Physician: Elena Neely Referring Physician: Chirag Bingham Performed By: Satnam Allen RCS Venous Doppler Study 06/03/21 15:03 Interpretation Summary There is no evidence of right lower extremity deep vein thrombosis. Right great saphenous vein appears patent and compressible segmentally. Suggestion of pulsitile venous flow consistent with proximal venous hypertension or obstruction. Clinical correlation would be appropriate. Ordering Physician: Elena Neely Referring Physician: Chirag Bingham Performed By: Hanh Reyes, RASHAD, RVT Chest X-Ray 06/04/21 06:22 IMPRESSION: Airspace disease right base slightly more pronounced. Possible mild congestion. Stable cardiomegaly, atherosclerosis and post surgical changes. Electronically Signed: Pauline Finley MD at 9:02 EST , Service support , Physical Exam Const General Appearance: cooperative and lethargic Orientation / Consciousness: oriented to person and oriented to place HEENT head/scalp atraumatic Head and Scalp: normocephalic Eyes conjunctivae normal and no scleral icterus Neck full ROM and supple General: trachea midline Resp normal respiratory effort Effort and Inspection: able to speak in complete sentences and symmetric chest movement Auscultation: diminished lung sounds bilateral throughout and diffuse Cardio regular rate, regular rhythm, S1 normal heart sound and S2 normal heart sound GI normal to inspection, nondistended, normoactive bowel sounds, soft to palpation and non-tender Extremity normal to inspection and full ROM General Extremity: edema bilateral lower extremity Details: moderate Skin no rashes or lesions noted Neuro moves all extremities and no sensory deficits noted Sensorium / Orientation: oriented to person and oriented to place Psych affect normal Assessment & Plan Assessment/Plan (1) Elevated troponin: (2) Acute confusion: (3) Pneumonia: QUALIFIERS: Laterality: right Lung location: lower lobe of lung Pneumonia type: due to unspecified organism Qualified Code(s): J18.9 - Pneumonia, unspecified organism PLAN: 1. Acute encephalopathy secondary to acute pneumonia -Continue Zosyn due to concern for aspiration -Encourage incentive spirometry -Sputum and blood culture pending -Respiratory panel and Covid PCR negative 2. Indeterminate cardiac enzymes -Trended down -EKG shows paced rhythm -Patient was initially on heparin drip but that was DC'd due to rectal bleeding 3. Hypertension -Continue Coreg, Lasix -As needed hydralazine ordered -Vital signs for protocol, stable 4. Hyperlipidemia -Continue statin 5. Chronic kidney disease stage III versus ARCADIO -Creatinine improved 1.4 today, likely ARCADIO -Continue gentle IV hydration 6. Status post pacemaker -placed approximately [address] Duke DVT prophylaxis-SCDs This patient was seen by Maria T Woodall NP-C under the supervision of Dr. Neely. - Documented by User: Dr. Elena Neely MD 06/04/21 15:25 Objective Data Lab / Micro Data Result Diagrams: 06/04/21 05:22 06/04/21 05:22
[2021-06-04] MEDS: 0.9% Normal Saline 1,000 ML 60 ML IV (09:56)
[2021-06-04] MEDS: Lactulose 20 GM/30 ML UDC 10 GM PO (09:57)
--- NOTE | 2021-06-04 11:24 | CON.PCM.CA_ITS ---
Assessment & Plan Assessment/Plan (1) Acute confusion: (2) Pneumonia: QUALIFIERS: Pneumonia type: due to unspecified organism Laterality: right Lung location: lower lobe of lung Qualified Code(s): J18.9 - Pneumonia, unspecified organism (3) GERD (gastroesophageal reflux disease): (4) Allergic rhinitis: (5) S/P cardiac pacemaker procedure: (6) Non-ST elevated myocardial infarction: PLAN: Patient seen and evaluated today, cardiac consultation requested because of elevated cardiac biomarkers with type II myocardial infarction Consistent with demand myocardial ischemia secondary to diagnosis of pneumonia/right lower lobe infiltrate with symptoms of cough and confusion. Evidently patient called EMS as she noted her was getting more confused and weaker He had significantly abnormal echocardiogram, severe LV systolic function with ejection fraction of around 20% With moderately enlarged left and right atrium had ICD device and a pacer Mild MR with mild AI and pulmonary artery systolic pressure mildly elevated around 34 mmHg Cardiovascular assessment recommendation; 1. Agree with the current medical treatment. cardiac monitor technician showed sequential atrial/ventricular paced rhythm To add beta-loi carvedilol low-dose 3.125 mg twice daily 2. Elevated creatinine with reduced estimated GFR, not a candidate for KIKE inhibitor or ARB for now 3. Clinical problem on this admission is right lower lobe pneumonia with acute confusion and will continue to monitor and follow-up clinically HPI Consult Data Date of Consult: 06/04/21 HPI Narrative Reason for Consultation: Severe LV systolic dysfunction,Type II CO HPI Narrative: CARMEN MICHAEL, is a 81 M who presents [facility] Medical History Allergic rhinitis GERD (gastroesophageal reflux disease) HLD (hyperlipidemia) Hypertension Tachy-servando syndrome Home Medications cholecalciferol (vitamin D3) 1,000 unit PO DAILY 11/01/19 [History Last Taken 06/03/21] fluticasone propionate 1 spray NASAL BID 11/01/19 [History Last Taken 06/03/21] acetaminophen 500 - 1,000 mg PO Q6H PRN 06/03/21 [History Last Taken 06/03/21] carvedilol 6.25 mg PO BID 06/03/21 [History Last Taken 06/03/21] furosemide 40 mg PO DAILY 06/03/21 [History Last Taken 06/03/21] omeprazole 40 mg PO DAILY 06/03/21 [History Last Taken 06/03/21] polyethylene glycol 3350 [Miralax] 17 g PO DAILY 06/03/21 [History Last Taken 06/03/21] rosuvastatin 40 mg PO QHS 06/03/21 [History Last Taken 06/02/21] Allergy/AdvReac Type Severity Reaction Status Date / Time No Known Allergies Allergy Verified 06/03/21 11:57 Family History Mother Heart disease Arthritis Asthma High cholesterol Hypertension Father Heart disease Arthritis Asthma High cholesterol Hypertension Other H/O ulcer disease Kidney disease Surgical History (Updated 06/04/21 @ 11:[address] Annita Moe MD) S/P cardiac pacemaker procedure Social History household members: spouse Smoking Status: Never smoker alcohol intake: never substance use type: does not use what type of physical activity do you participate in: other Physical Exam Narrative She agrees acute confusion not oriented to time or place Cardiovascular examination cardiac telemetry revealed underlying atrial fibrillation with paced ventricular rhythm S1-S2 is regular there is no murmur. Chest examination coarse crackle in the right lower base Abdomen soft Examination lower extremity no clubbing no cyanosis no lower extremity edema Risk Stratification Risk Stratification Applicable: No Objective Data Vital Signs: Vital Signs Temp Pulse Resp BP Pulse Ox 97.2 F L 61 16 132/73 H 97 06/04/21 09:21 06/04/21 09:21 06/04/21 09:21 06/04/21 09:21 06/04/21 09:21 Oxygen Flow Rate (L/min) 2 Oxygen Delivery Method Nasal Cannula Weight: 179 lb 14.355 oz Body Mass Index (BMI) 27.1 Intake & Output: Intake and Output for Last 24 Hours 06/02/21 06/03/21 06/04/21 23:59 23:59 23:59 Intake Total 807.7 / 1217.7 1660 / 1660 Balance 807.7 / 1217.7 1660 / 1660 Lab / Micro Data Result Diagrams: 06/04/21 05:22 06/04/21 05:22 Labs: Laboratory Results - last 24 hr 06/03/21 12:19: WBC 6.7, RBC 4.61, Hgb 13.8, Hct 44.2, MCV 95.9 H, MCH 29.9, MCHC 31.2 L, RDW Std Deviation 51.0 H, RDW Coeff of Giovani 14.6, Plt Count 176, MPV 10.3, Immature Gran % (Auto) 0.400, Neut % (Auto) 71.6 H, Lymph % (Auto) 16.4 L, [place] % (Auto) 6.1, Eos % (Auto) 5.1 H, Baso % (Auto) 0.4, Absolute Neuts (auto) 4.8, Absolute Lymphs (auto) 1.10, Nucleated RBC % 0 06/03/21 12:19: Sodium 144, Potassium 3.7, Chloride 108 H, Carbon Dioxide 25.0, Anion Gap 11, BUN 39 H, Creatinine 1.64 H, Estim Creat Clear Calc 34.73, Est GFR (MDRD) Af Amer 52 L, Est GFR (MDRD) Non-Af 43 L, BUN/Creatinine Ratio 23.8 H, Glucose 99, Calcium 8.8, Troponin I High Sens 196 H* 06/03/21 12:19: Lactic Acid 1.4 06/03/21 12:19: PT 14.8, INR 1.2, APTT 31.3 06/03/21 12:19: Magnesium 2.6 06/03/21 12:19: Procalcitonin 0.16 H 06/03/21 12:37: Urine Color Yellow, Urine Clarity Clear, Urine pH 5.0, Ur Specific [place] 1.020, Urine Protein 30 H, Urine Glucose (UA) Normal, Urine Ketones Negative, Urine Occult Blood Negative, Urine Nitrite Negative, Urine Bilirubin Negative, Urine Urobilinogen Normal, Ur Leukocyte Esterase Negative, Urine RBC 0 SEEN, Urine WBC 0-5 SEEN, Ur Squamous Epith Cells 0 SEEN, Urine Bacteria 0 SEEN, Hyaline Casts 0-5 SEEN, Urine Mucus 0 SEEN 06/03/21 15:49: Troponin I High Sens 178 H* 06/03/21 16:36: COVID-19 (LINDY) Not Detected 06/03/21 19:28: Troponin I High Sens 137 H* 06/03/21 22:40: APTT 185.0 H* 06/04/21 05:22: WBC 5.4, RBC 4.38 L, Hgb 13.1, Hct 41.5, MCV 94.7 H, MCH 29.9, MCHC 31.6 L, RDW Std Deviation 49.6 H, RDW Coeff of Giovani 14.4, Plt Count 154, MPV 10.4, Immature Gran % (Auto) 0.400, Neut % (Auto) 66.4, Lymph % (Auto) 19.5, [place] % (Auto) 7.5, Eos % (Auto) 5.3 H, Baso % (Auto) 0.9, Absolute Neuts (auto) 3.6, Absolute Lymphs (auto) 1.06, Nucleated RBC % 0 06/04/21 05:22: Sodium 141, Potassium 3.5, Chloride 111 H, Carbon Dioxide 21.0, Anion Gap 9, BUN 38 H, Creatinine 1.40 H, Estim Creat Clear Calc 40.68, Est GFR (MDRD) Af Amer 62, Est GFR (MDRD) Non-Af 52 L, BUN/Creatinine Ratio 27.1 H, G lucose 98, Calcium 8.1 L, Total Bilirubin 0.70, AST 26, ALT 32, Alkaline Phosphatase 118 H, Total Protein 6.6, Albumin 2.6 L, Globulin 4.0, Albumin/Globulin Ratio 0.6 L, Triglycerides 100, Cholesterol 93, LDL Cholesterol 41, VLDL Cholesterol 20, HDL Cholesterol 32 L 06/04/21 05:25: APTT 32.8 06/04/21 06:28: Ammonia Cancelled 06/04/21 07:36: Ammonia 27.0 Micro: Microbiology 06/03/21 16:36 Mucosa - Nose Respiratory Panel (PCR) - Final 06/03/21 12:37 Urine Catheter - Catheter Legionella Antigen - Final 06/03/21 12:37 Urine Catheter - Catheter Streptococcus pneumoniae Antigen (M - Final 06/03/21 12:35 Nasal Secretion SARS-CoV-2 Antigen (Rapid) - Final ABG Data ABG results: ABG 06/04/21 07:03 Specimen Type ART Sample Site L Brach pH 7.41 Bicarbonate Actual 21.1 L Total CO2 22 Base Excess -4 L O2 Saturation 98 ABG pCO2 33.1 L ABG pO2 94 O2 Delivery Device Cannula Liter Flow 2.0 Cardiology Labs/Tests 06/03/21 12:19: WBC 6.7, RBC 4.61, Hgb 13.8, Hct 44.2, MCV 95.9 H, MCH 29.9, MCHC 31.2 L, Plt Count 176, MPV 10.3, Immature Gran % (Auto) 0.400, Neut % (Auto) 71.6 H, Lymph % (Auto) 16.4 L, [place] % (Auto) 6.1, Eos % (Auto) 5.1 H, Baso % (Auto) 0.4, Absolute Neuts (auto) 4.8, Nucleated RBC % 0 06/03/21 12:19: Sodium 144, Potassium 3.7, Chloride 108 H, Carbon Dioxide 25.0, Anion Gap 11, BUN 39 H, Creatinine 1.64 H, Est GFR (MDRD) Af Amer 52 L, Est GFR (MDRD) Non-Af 43 L, BUN/Creatinine Ratio 23.8 H, Glucose 99, Calcium 8.8 06/03/21 12:19: Lactic Acid 1.4 06/03/21 12:19: PT 14.8, INR 1.2, APTT 31.3 06/03/21 12:19: Magnesium 2.6 06/03/21 12:37: Urine Color Yellow, Urine Clarity Clear, Urine pH 5.0, Ur Specific [place] 1.020, Urine Protein 30 H, Urine Glucose (UA) Normal, Urine Ketones Negative, Urine Occult Blood Negative, Urine Nitrite Negative, Urine Bilirubin Negative, Urine Urobilinogen Normal, Ur Leukocyte Esterase Negative, Urine RBC 0 SEEN, Urine WBC 0-5 SEEN 06/03/21 22:40: APTT 185.0 H* 06/04/21 05:22: WBC 5.4, RBC 4.38 L, Hgb 13.1, Hct 41.5, MCV 94.7 H, MCH 29.9, MCHC 31.6 L, Plt Count 154, MPV 10.4, Immature Gran % (Auto) 0.400, Neut % (Auto) 66.4, Lymph % (Auto) 19.5, Gilliam % (Auto) 7.5, Eos % (Auto) 5.3 H, Baso % (Auto) 0.9, Absolute Neuts (auto) 3.6, Nucleated RBC % 0 06/04/21 05:22: Sodium 141, Potassium 3.5, Chloride 111 H, Carbon Dioxide 21.0, Anion Gap 9, BUN 38 H, Creatinine 1.40 H, Est GFR (MDRD) Af Amer 62, Est GFR (MDRD) Non-Af 52 L, BUN/Creatinine Ratio 27.1 H, Glucose 98, Calcium 8.1 L, Total Bilirubin 0.70, Triglycerides 100, Cholesterol 93, LDL Cholesterol 41, V LDL Cholesterol 20, HDL Cholesterol 32 L 06/04/21 05:25: APTT 32.8 06/04/21 07:03: pH 7.41, Bicarbonate Actual 21.1 L, Base Excess -4 L, O2 Saturation 98, ABG pCO2 33.1 L, ABG pO2 94 Rhythm: EKG: ECHO: Stress Test: Cardiac Cath: PCI: CT Surgery: Holter monitor: EPS: PPM: CXR: Chest CT Scan: Radiography Diagnostic Testing: Radiology Impression Brain CT 06/03/21 12:04 IMPRESSION: No acute intracranial hemorrhage or mass effect. Electronically Signed: Epi Das MD (Brooks) at 13:01 EST , Service support , Chest X-Ray 06/03/21 12:49 IMPRESSION: 1. Right lower lobe infiltrate suggesting pneumonia. Electronically Signed: Epi Das MD (Brooks) at 13:04 EST , Service support , Echocardiogram 06/03/21 15:03 Interpretation Summary Normal LV size. Severe concentric left ventricular hypertrophy. The estimated ejection fraction is 20 %. There is severe global hypokinesis of the left ventricle. The left atrium is moderately enlarged. The right atrium is moderately enlarged. Pulmonary artery systolic pressure is 34 mmHg. Mild (1+) aortic valve insufficiency. Ordering Physician: Elena Neely Referring Physician: Chirag Bingham Performed By: Satnam Allen, RCS Venous Doppler Study 06/03/21 15:03 Interpretation Summary There is no evidence of right lower extremity deep vein thrombosis. Right great saphenous vein appears patent and compressible segmentally. Suggestion of pulsitile venous flow consistent with proximal venous hypertension or obstruction. Clinical correlation would be appropriate. Ordering Physician: Elena Neely Referring Physician: Chirag Bingham Performed By: Hanh Reyes, RASHAD, RVT Chest X-Ray 06/04/21 06:22 IMPRESSION: Airspace disease right base slightly more pronounced. Possible mild congestion. Stable cardiomegaly, atherosclerosis and post surgical changes. Electronically Signed: Pauline Finley MD at 9:02 EST , Service support ,
[2021-06-04] MEDS: Atorvastatin Calcium 80 MG Tablet PO (20:18)
[2021-06-04] MEDS: Fluticasone 0.05% 1 SPRAY NASAL.SRY NASAL (20:18)
[2021-06-04] MEDS: Pantoprazole Sodium 40 MG Tablet PO (20:18)
[2021-06-05] VITALS (7 sets, daily range): BP systolic 155–158; BP diastolic 79–87; PULSE 65–78; RESP 18; TEMP 36.4–37.3; O2SAT 95–96
[2021-06-05 07:26] LABS: Absolute Lymphocyte Count 1.01 X10^3/uL (0.83-4.51); Absolute Neutrophil Count 3.6 X10^3/uL (2.0-7.7); Basophil# 0.03 X10^3/uL; Basophil% 0.6 % (0-1); Eosinophils% 5.6 % (0-5); Lymphocyte # 1.01 X10^3/ul (0.83-4.51); Lymphocyte % 18.8 % (19-41); Mean Corp Hgb Conc 32.5 g/dL (32-36); Mean Corpuscular Hgb 30.8 pg (27.0-32.0); Mean Corpuscular Volume 94.8 fL (80-94); Mean Platelet Vol. 10.5 fl (6.2-12.0); Monocyte# 0.45 X10^3/uL; Monocyte% 8.4 % (0-10); NRBC Flagged by Analyzer 0 % (0-5); Neutrophil # 3.58 X10^3/uL (2.7-7.7); Neutrophil % 66.4 % (47-70); Platelet Count 145 K/mm3 (150-450); RBC Distribution Width CV 14.8 % (11.6-14.6); RBC Distribution Width SD 50.8 fl (35.1-43.9); Red Blood Count 4.22 M/mm3 (4.6-6.2); White Blood Count 5.4 K/mm3 (4.4-11.0)
[2021-06-05 07:47] LABS: ALB/GLOB Ratio 0.6 RATIO (0.9-2.4); AST(SGOT) 21 U/L (15-37); Alanine Aminotransfer ALT/SGPT 29 U/L (16-61); Albumin, Serum 2.6 g/dL (3.2-5.0); Alkaline Phosphatase 111 U/L (45-117); Anion Gap 9 (5-15); BUN 30 mg/dL (7-18); BUN/Creat Ratio 20.1 RATIO (10-20); Calcium,Total 8.4 mg/dL (8.5-10.1); Chloride 114 mmol/L (98-107); Creatinine, Serum 1.49 mg/dL (0.70-1.30); EST Glomerular Filtration Rate 48 mL/min (>60); Est Glom Filt Rate - Afr Amer 58 mL/min (>60); Estimated Creatinine Clearance 38.22 ml/min; Globulin 4.1 g/dL (2.2-4.2); Glucose 103 mg/dL (74-106); Potassium 3.2 mmol/L (3.5-5.1); Protein, Total 6.7 g/dL (6.4-8.2); Sodium Level 144 mmol/L (136-145)
--- NOTE | 2021-06-05 09:37 | PCM.DC ---
Discharge Instructions Diet Discharge Diet: Low fat / Low cholesterol Activity Discharge Activity: Return to Normal Activity Dressing / Incision Call your doctor if you observe: Shortness of breath, Swelling in the ankles, Chest pain and Increased palpitations (irregular heartbeat) Follow Up Care Please Follow Up With: Chirag Bingham MD When: 1 week Test Results: Test results from this visit will be discussed in further detail at your follow-up appointment, if applicable. Discharge Plan Admission Admit Date/Time: 06/03/21 13:56 Primary Reason for Your Visit: Encephalopathy Attending Provider: Elena Neely Primary Care Provider: Chirag Bingham Consulting Providers: Annita Moe Instructions Additional Instructions / Restrictions: Please follow up with Dr. Duke in 2 weeks for further cardiac work up Discharge Orders/Prescriptions Prescriptions: New aspirin 81 mg Tablet,Chewable 81 mg PO BREAKFAST Qty: 0 RF: 0 amoxicillin-pot clavulanate [Augmentin] 875-125 mg tablet 1 tab PO BID 5 Days Qty: 10 RF: 0 Continued fluticasone propionate 1 SPRAY spray,suspension 1 spray NASAL BID RF: 0 cholecalciferol (vitamin D3) 1,000 UNIT tablet 1,000 unit PO DAILY RF: 0 furosemide 40 mg tablet 40 mg PO DAILY RF: 0 carvedilol 6.25 mg tablet 6.25 mg PO BID RF: 0 omeprazole 40 mg capsule,delayed release(DR/EC) 40 mg PO DAILY RF: 0 rosuvastatin 40 mg tablet 40 mg PO QHS RF: 0 acetaminophen 500 mg Tablet 500 - 1,000 mg PO Q6H PRN (Reason: Back Pain) RF: 0 polyethylene glycol 3350 [Miralax] 17 gram/dose Powder 17 g PO DAILY RF: 0 Other Ambulatory Orders: Polysomnography with NCPAP (Routine) Facility: [facility] - Location: [facility] Ordered By: Maria T Woodall Referrals / Follow Up: Chirag Bingham MD [Primary Care Provider] - Disposition Disposition (needs filled in before D/C Order can be placed): Home Health Service
--- NOTE | 2021-06-05 09:48 | DS.PCM_ITS ---
Documented by User: MEGAN Hewitt 06/05/21 09:52 Providers Date of Admission: 06/03/21 Primary Care Physician: Dr. Chirag Bingham MD Consultations 06/04/21 07:35 Consult: Cardiology Routine Consulting Provider: Annita Moe Reason for Consult: Admit w/ PNA, elevated trop, had bleeding w/ hep, ECHO w/ EF 20% (new) EMERGENT Consult: No MD Notified: Yes Date Notified: 06/04/21 Time Notified: 07:35 Method of Notification: Text Reason For Visit: ENCEPHALOPATHY, PNA, INDETERM TROP Diagnosis Discharge Diagnosis (1) Acute confusion: Status: Acute Code(s): R41.0 - Disorientation, unspecified (2) Pneumonia: Status: Acute Code(s): J18.9 - Pneumonia, unspecified organism Qualifiers: Laterality: right Lung location: lower lobe of lung Pneumonia type: due to unspecified organism Qualified Code(s): J18.9 - Pneumonia, unspecified organism (3) GERD (gastroesophageal reflux disease): Status: Chronic Code(s): K21.9 - Gastro-esophageal reflux disease without esophagitis (4) Allergic rhinitis: Status: Chronic Code(s): J30.9 - Allergic rhinitis, unspecified (5) S/P cardiac pacemaker procedure: Status: Inactive Code(s): Z95.0 - Presence of cardiac pacemaker (6) Non-ST elevated myocardial infarction: Status: Acute Code(s): I21.4 - Non-ST elevation (NSTEMI) myocardial infarction Medications at Discharge Home Medications cholecalciferol (vitamin D3) 1,000 unit PO DAILY 11/01/19 fluticasone propionate 1 spray NASAL BID 11/01/19 acetaminophen 500 - 1,000 mg PO Q6H PRN 06/03/21 carvedilol 6.25 mg PO BID 06/03/21 furosemide 40 mg PO DAILY 06/03/21 omeprazole 40 mg PO DAILY 06/03/21 polyethylene glycol 3350 [Miralax] 17 g PO DAILY 06/03/21 rosuvastatin 40 mg PO QHS 06/03/21 amoxicillin-pot clavulanate [Augmentin] 1 tab PO BID 5 Days #10 tab 06/05/21 aspirin 81 mg PO BREAKFAST #0 tab 06/05/21 Hospital Course Operations None Procedures 2-D Echocardiogram and EKG Summary of Care Provided Minutes Spent on Discharge: 35 Hospital Course: Patient is an 81-year-old male who originally presented with confusion. Patient was noted to have an NSTEMI after evaluation with elevated troponins. Patient underwent a echocardiogram which demonstrates EF of 20% with severe left ventricular hypertrophy as well as severe global hypokinesis of the left ventricle and moderately enlarged right and left atrium. Patient also underwent lower extremity venous study and there was no evidence of right lower extremity deep vein thrombosis. Patient is instructed to follow-up with his medical accounts receivable specialist for further cardiac work-up and possible intervention. Patient also provided order for sleep study as patient did much better when placed on CPAP overnight. Patient will be discharged on 5 days of Augmentin with instructions to follow-up with his primary care provider in 1 week. Physical Exam Const General Appearance: cooperative and lethargic Orientation / Consciousness: oriented to person and oriented to place HEENT head/scalp atraumatic Eyes conjunctivae normal and no scleral icterus Neck full ROM and supple General: trachea midline Resp normal respiratory effort Effort and Inspection: able to speak in complete sentences and symmetric chest movement Auscultation: diminished lung sounds bilateral throughout and diffuse Cardio regular rate, regular rhythm, S1 normal heart sound and S2 normal heart sound GI normal to inspection, nondistended, normoactive bowel sounds, soft to palpation and non-tender Extremity normal to inspection and full ROM General Extremity: edema bilateral lower extremity Details: moderate Skin no rashes or lesions noted, no wounds and skin turgor normal Neuro moves all extremities and no sensory deficits noted Sensorium / Orientation: oriented to person and oriented to place Psych affect normal Weight / BMI Weight Weight: 179 lb 7.3 oz Body Mass Index (BMI) 27.1 ABG / Lab / Microbiology Data Result Diagrams: 06/05/21 06:27 06/05/21 06:27 Laboratory: Laboratory Results - last 24 hr 06/04/21 13:30: Ammonia 32.0 06/05/21 06:27: WBC 5.4, RBC 4.22 L, Hgb 13.0, Hct 40.0, MCV 94.8 H, MCH 30.8, MCHC 32.5, RDW Std Deviation 50.8 H, RDW Coeff of Giovani 14.8 H, Plt Count 145 L, MPV 10.5, Immature Gran % (Auto) 0.200, Neut % (Auto) 66.4, Lymph % (Auto) 18.8 L, [place] % (Auto) 8.4, Eos % (Auto) 5.6 H, Baso % (Auto) 0.6, Absolute Neuts (auto) 3.6, Absolute Lymphs (auto) 1.01, Nucleated RBC % 0 06/05/21 06:27: Sodium 144, Potassium 3.2 L, Chloride 114 H, Carbon Dioxide 21.0, Anion Gap 9, BUN 30 H, Creatinine 1.49 H, Estim Creat Clear Calc 38.22, Est GFR (MDRD) Af Amer 58 L, Est GFR (MDRD) Non-Af 48 L, BUN/Creatinine Ratio 20.1 H, Glucose 103, Calcium 8.4 L, Total Bilirubin 0.80, AST 21, ALT 29, Alkaline Phosphatase 111, Total Protein 6.7, Albumin 2.6 L, Globulin 4.1, Albumin/Globulin Ratio 0.6 L Microbiology: Microbiology 06/03/21 13:25 Blood Culture (Wb) - Right Hand Blood Culture - Preliminary No growth in 48 hours. 06/03/21 12:19 Blood Culture (Wb) - Anticubital Right Blood Culture - Preliminary No growth in 48 hours. 06/03/21 15:35 Sputum, Expectorated/Coughed Gram Stain - Final 06/03/21 15:35 Sputum, Expectorated/Coughed Respiratory Culture - Preliminary Appears to be normal respiratory naldo. Further studies to follow. 06/03/21 16:36 Mucosa - Nose Respiratory Panel (PCR) - Final 06/03/21 12:37 Urine Catheter - Catheter Legionella Antigen - Final 06/03/21 12:37 Urine Catheter - Catheter Streptococcus pneumoniae Antigen (M - Final 06/03/21 12:35 Nasal Secretion SARS-CoV-2 Antigen (Rapid) - Final D/C Instructions Discharge Diet: Low fat / Low cholesterol Call your doctor if you observe: Shortness of breath, Swelling in the ankles, Chest pain and Increased palpitations (irregular heartbeat) Please Follow Up With: Chirag Bingham MD When: 1 week Meaningful Use Info Meaningful Use Diagnoses (Choose all that apply): None applicable Discharge Plan Admission Admit Date/Time: 06/03/21 13:56 Primary Reason for Your Visit: Encephalopathy Attending Provider: Elena Neely Primary Care Provider: Chirag Bingham Consulting Providers: Aninta Moe Instructions Patient Instructions: Common Heart Medicines, Coping with Heart Failure, Heart Failure and Physical Activity Additional Instructions / Restrictions: Please follow up with Dr. Duke in 2 weeks for further cardiac work up Discharge Orders/Prescriptions Prescriptions: New aspirin 81 mg Tablet,Chewable 81 mg PO BREAKFAST Qty: 0 RF: 0 amoxicillin-pot clavulanate [Augmentin] 875-125 mg tablet 1 tab PO BID 5 Days Qty: 10 RF: 0 Continued fluticasone propionate 1 SPRAY spray,suspension 1 spray NASAL BID RF: 0 cholecalciferol (vitamin D3) 1,000 UNIT tablet 1,000 unit PO DAILY RF: 0 furosemide 40 mg tablet 40 mg PO DAILY RF: 0 carvedilol 6.25 mg tablet 6.25 mg PO BID RF: 0 omeprazole 40 mg capsule,delayed release(DR/EC) 40 mg PO DAILY RF: 0 rosuvastatin 40 mg tablet 40 mg PO QHS RF: 0 acetaminophen 500 mg Tablet 500 - 1,000 mg PO Q6H PRN (Reason: Back Pain) RF: 0 polyethylene glycol 3350 [Miralax] 17 gram/dose Powder 17 g PO DAILY RF: 0 Other Ambulatory Orders: Polysomnography with NCPAP (Routine) Facility: [facility] - Location: [facility] Ordered By: Maria T Woodall Referrals / Follow Up: Chirag Bingham MD [Primary Care Provider] - Disposition Disposition (needs filled in before D/C Order can be placed): Home Health Service Documented by User: Dr. Elena Neely MD 06/05/21 11:16 Providers Date of Admission: 06/03/21 Reason For Visit: ENCEPHALOPATHY, PNA, INDETERM TROP Medications at Discharge Home Medications cholecalciferol (vitamin D3) 1,000 unit PO DAILY 11/01/19 fluticasone propionate 1 spray NASAL BID 11/01/19 acetaminophen 500 - 1,000 mg PO Q6H PRN 06/03/21 carvedilol 6.25 mg PO BID 06/03/21 furosemide 40 mg PO DAILY 06/03/21 omeprazole 40 mg PO DAILY 06/03/21 polyethylene glycol 3350 [Miralax] 17 g PO DAILY 06/03/21 rosuvastatin 40 mg PO QHS 06/03/21 amoxicillin-pot clavulanate [Augmentin] 1 tab PO BID 5 Days #10 tab 06/05/21 aspirin 81 mg PO BREAKFAST #0 tab 06/05/21 ABG / Lab / Microbiology Data Result Diagrams: 06/05/21 06:27 06/05/21 06:27 Discharge Plan Admission Admit Date/Time: 06/03/21 13:56 Primary Reason for Your Visit: Encephalopathy Attending Provider: Elena Neely Primary Care Provider: Chirag Bingham Consulting Providers: Annita Moe Instructions Patient Instructions: Common Heart Medicines, Coping with Heart Failure, Heart Failure and Physical Activity Additional Instructions / Restrictions: Please follow up with Dr. Duke in 2 weeks for further cardiac work up Discharge Orders/Prescriptions Prescriptions: New aspirin 81 mg Tablet,Chewable 81 mg PO BREAKFAST Qty: 0 RF: 0 amoxicillin-pot clavulanate [Augmentin] 875-125 mg tablet 1 tab PO BID 5 Days Qty: 10 RF: 0 Continued fluticasone propionate 1 SPRAY spray,suspension 1 spray NASAL BID RF: 0 cholecalciferol (vitamin D3) 1,000 UNIT tablet 1,000 unit PO DAILY RF: 0 furosemide 40 mg tablet 40 mg PO DAILY RF: 0 carvedilol 6.25 mg tablet 6.25 mg PO BID RF: 0 omeprazole 40 mg capsule,delayed release(DR/EC) 40 mg PO DAILY RF: 0 rosuvastatin 40 mg tablet 40 mg PO QHS RF: 0 acetaminophen 500 mg Tablet 500 - 1,000 mg PO Q6H PRN (Reason: Back Pain) RF: 0 polyethylene glycol 3350 [Miralax] 17 gram/dose Powder 17 g PO DAILY RF: 0 Other Ambulatory Orders: Polysomnography with NCPAP (Routine) Facility: [facility] - Location: [facility] Ordered By: Maria T Woodall Referrals / Follow Up: Chirag Bingham MD [Primary Care Provider] - Disposition Disposition (needs filled in before D/C Order can be placed): Home Health Service
[2021-06-05] MEDS: Aspirin 81 MG TAB.CHEW PO (10:33)
[2021-06-05] MEDS: Pantoprazole Sodium 40 MG Tablet PO (10:33)
[2021-06-05] MEDS: Fluticasone 0.05% 1 SPRAY NASAL.SRY NASAL (10:33)
[2021-06-05] MEDS: Furosemide 40 MG Tablet PO (10:33)
[2021-06-05] MEDS: Carvedilol 6.25 MG Tablet PO (10:39)
--- NOTE | 2021-06-05 11:30 | CASEMGMT ---
RN JOSEPH assessment: Face to Face with patient for initial transition planning/care coordination assessment. RN CM introduced self and role at [facility], pt voices understanding and consents to assessment. Pt is sitting up in bed in no distress on room air. Pt is A/Ox3 and answers all questions appropriately but is hard of hearing. Pt does have moments of confusion and this RN CM asked pt if can also discuss all with , voiced agreement. Care providers, pharmacy, and demographics verified. Presentation: Pt brought in for increased confusion, pt states has thyroid attacks some mornings Admitting dx: Encephalopathy, pna PCP: Giovanni Specialists: Sivan, cardio Preferred Pharmacy: [facility] Insurance: [employer] A/B, [employer] Prescription Benefit: Yes Living Will/HPOA: Pt does not have LW/HPOA and declines AD info. LNOK: [place], Living Arrangements: Pt lives with in 1 story home with a few steps in and states no concerns at home. Pt is independent with most ADL's but helps with meals, etc. Transportation: Pt drives self and states no transportation concerns. DME/HHC: Pt has the following DME: cane, grab bars, shower chair, and rollator. Pt states no need for any further DME. Pt states has had [facility] the past and has been to a SNF in [place] but cannot remember name. Pt states would like [facility] again at discharge and this RN CM to also verify with prior to referral. Pt states no concerns with going home at time of discharge. Pt is retired. Pt states does not smoke cigarettes or drink ETOH. Pt voices no further concerns/needs. CM to follow for HHC and any further discharge planning/needs. Advised pt to ask for CM if any further questions/concerns/needs arise, voices understanding. Pt Goal: Home Plan: Home w/ HHC [place] RN JOSEPH
--- NOTE | 2021-06-05 11:48 | CASEMGMT ---
Addendum entered by Selam Snowden 06/05/21 11:54: Call back from Ted at [facility] and he states they can accept pt and do SOC 06/06/21. Ted aware for staff to call as pt is hard of hearing, voices understanding. updated, voices understanding and states her daughter will be driving her to [facility] to pick up but unsure of time. Hanh AGUIRRE updated, voices understanding. Radha AGUIRRE CM Original Note: Pt/ state preference for [facility] as pt has had them in the past. Call to Ted at [facility] and message left to call this RN CM back. Referral faxed to [facility]. CM to follow. Radha AGUIRRE CM
--- NOTE | 2021-06-05 12:01 | PN.CARD_ITS ---
Subjective Subjective No event noted from last night, patient still confused but no symptoms reported. Objective Data Vital Signs: Vital Signs Temp Pulse Resp BP Pulse Ox 97.5 F L 72 18 158/87 H 95 06/05/21 10:41 06/05/21 10:59 06/05/21 10:41 06/05/21 10:41 06/05/21 11:51 Oxygen Flow Rate (L/min) 2 Oxygen Delivery Method Nasal Cannula Weight: 179 lb 7.3 oz Body Mass Index (BMI) 27.1 Intake & Output: Intake and Output for Last 24 Hours 06/03/21 06/04/21 06/05/21 23:59 23:59 23:59 Intake Total 807.7 / 1217.7 3480 / 3480 100 / 100 Balance 807.7 / 1217.7 3480 / 3480 100 / 100 Lab / Micro Data Result Diagrams: 06/05/21 06:27 06/05/21 06:27 Labs: Laboratory Results - last 24 hr 06/04/21 13:30: Ammonia 32.0 06/05/21 06:27: WBC 5.4, RBC 4.22 L, Hgb 13.0, Hct 40.0, MCV 94.8 H, MCH 30.8, MCHC 32.5, RDW Std Deviation 50.8 H, RDW Coeff of Giovani 14.8 H, Plt Count 145 L, MPV 10.5, Immature Gran % (Auto) 0.200, Neut % (Auto) 66.4, Lymph % (Auto) 18.8 L, [place] % (Auto) 8.4, Eos % (Auto) 5.6 H, Baso % (Auto) 0.6, Absolute Neuts (auto) 3.6, Absolute Lymphs (auto) 1.01, Nucleated RBC % 0 06/05/21 06:27: Sodium 144, Potassium 3.2 L, Chloride 114 H, Carbon Dioxide 21.0, Anion Gap 9, BUN 30 H, Creatinine 1.49 H, Estim Creat Clear Calc 38.22, Est GFR (MDRD) Af Amer 58 L, Est GFR (MDRD) Non-Af 48 L, BUN/Creatinine Ratio 20.1 H, Glucose 103, Calcium 8.4 L, Total Bilirubin 0.80, AST 21, ALT 29, Alkaline Phosphatase 111, Total Protein 6.7, Albumin 2.6 L, Globulin 4.1, Albumin/Globulin Ratio 0.6 L Micro: Microbiology 06/03/21 13:25 Blood Culture (Wb) - Right Hand Blood Culture - Preliminary No growth in 48 hours. 06/03/21 12:19 Blood Culture (Wb) - Anticubital Right Blood Culture - Preliminary No growth in 48 hours. 06/03/21 15:35 Sputum, Expectorated/Coughed Gram Stain - Final 06/03/21 15:35 Sputum, Expectorated/Coughed Respiratory Culture - Preliminary Appears to be normal respiratory naldo. Further studies to follow. Cardiology Labs/Tests 06/05/21 06:27: WBC 5.4, RBC 4.22 L, Hgb 13.0, Hct 40.0, MCV 94.8 H, MCH 30.8, MCHC 32.5, Plt Count 145 L, MPV 10.5, Immature Gran % (Auto) 0.200, Neut % (Auto) 66.4, Lymph % (Auto) 18.8 L, [place] % (Auto) 8.4, Eos % (Auto) 5.6 H, Baso % (Auto) 0.6, Absolute Neuts (auto) 3.6, Nucleated RBC % 0 06/05/21 06:27: Sodium 144, Potassium 3.2 L, Chloride 114 H, Carbon Dioxide 21.0, Anion Gap 9, BUN 30 H, Creatinine 1.49 H, Est GFR (MDRD) Af Amer 58 L, Est GFR (MDRD) Non-Af 48 L, BUN/Creatinine Ratio 20.1 H, Glucose 103, Calcium 8.4 L, Total Bilirubin 0.80 Rhythm: EKG: ECHO: Stress Test: Cardiac Cath: PCI: CT Surgery: Holter monitor: EPS: PPM: CXR: Chest CT Scan: Physical Exam Narrative Review of telemetry paced ventricular rhythm with underlying atrial fibrillation. Cardiovascular examination S1-S2 regular Chest examination mild coarse crackle at the right lower lung base Diminished lower extremity no clubbing no cyanosis lower extremity edema Central nervous system exam no focal neurological deficit Assessment & Plan Assessment/Plan (1) Pneumonia: QUALIFIERS: Laterality: right Lung location: lower lobe of lung Pneumonia type: due to unspecified organism Qualified Code(s): J18.9 - Pneumonia, unspecified organism PLAN: 87-year-old patient with history of mild elevation of cardiac biomarkers with a clinical diagnosis of pneumonia and acute confusion Patient has type II myocardial infarction secondary to demand myocardial ischem ia Cardiac care plan and recommendation discussed with the nursing staff Continue current medical treatment No plan for invasive cardiac evaluation (2) GERD (gastroesophageal reflux disease): (3) Allergic rhinitis: (4) Hypertension: (5) Acute confusion: (6) Elevated troponin:
--- NOTE | 2021-06-05 12:35 | PCM.PN.CARD ---
Subjective Subjective No event noted from last night patient mildly confused but no symptoms reported Objective Data Vital Signs: Vital Signs Temp Pulse Resp BP Pulse Ox 97.5 F L 72 18 158/87 H 95 06/05/21 10:41 06/05/21 10:59 06/05/21 10:41 06/05/21 10:41 06/05/21 11:51 Oxygen Flow Rate (L/min) 2 Oxygen Delivery Method Nasal Cannula Weight: 179 lb 7.3 oz Body Mass Index (BMI) 27.1 Intake & Output: Intake and Output for Last 24 Hours 06/03/21 06/04/21 06/05/21 23:59 23:59 23:59 Intake Total 807.7 / 1217.7 3480 / 3480 100 / 100 Balance 807.7 / 1217.7 3480 / 3480 100 / 100 Lab / Micro Data Result Diagrams: 06/05/21 06:27 06/05/21 06:27 Labs: Laboratory Results - last 24 hr 06/04/21 13:30: Ammonia 32.0 06/05/21 06:27: WBC 5.4, RBC 4.22 L, Hgb 13.0, Hct 40.0, MCV 94.8 H, MCH 30.8, MCHC 32.5, RDW Std Deviation 50.8 H, RDW Coeff of Giovani 14.8 H, Plt Count 145 L, MPV 10.5, Immature Gran % (Auto) 0.200, Neut % (Auto) 66.4, Lymph % (Auto) 18.8 L, [place] % (Auto) 8.4, Eos % (Auto) 5.6 H, Baso % (Auto) 0.6, Absolute Neuts (auto) 3.6, Absolute Lymphs (auto) 1.01, Nucleated RBC % 0 06/05/21 06:27: Sodium 144, Potassium 3.2 L, Chloride 114 H, Carbon Dioxide 21.0, Anion Gap 9, BUN 30 H, Creatinine 1.49 H, Estim Creat Clear Calc 38.22, Est GFR (MDRD) Af Amer 58 L, Est GFR (MDRD) Non-Af 48 L, BUN/Creatinine Ratio 20.1 H, Glucose 103, Calcium 8.4 L, Total Bilirubin 0.80, AST 21, ALT 29, Alkaline Phosphatase 111, Total Protein 6.7, Albumin 2.6 L, Globulin 4.1, Albumin/Globulin Ratio 0.6 L Micro: Microbiology 06/03/21 13:25 Blood Culture (Wb) - Right Hand Blood Culture - Preliminary No growth in 48 hours. 06/03/21 12:19 Blood Culture (Wb) - Anticubital Right Blood Culture - Preliminary No growth in 48 hours. 06/03/21 15:35 Sputum, Expectorated/Coughed Gram Stain - Final 06/03/21 15:35 Sputum, Expectorated/Coughed Respiratory Culture - Preliminary Appears to be normal respiratory naldo. Further studies to follow. Cardiology Labs/Tests 06/05/21 06:27: WBC 5.4, RBC 4.22 L, Hgb 13.0, Hct 40.0, MCV 94.8 H, MCH 30.8, MCHC 32.5, Plt Count 145 L, MPV 10.5, Immature Gran % (Auto) 0.200, Neut % (Auto) 66.4, Lymph % (Auto) 18.8 L, [place] % (Auto) 8.4, Eos % (Auto) 5.6 H, Baso % (Auto) 0.6, Absolute Neuts (auto) 3.6, Nucleated RBC % 0 06/05/21 06:27: Sodium 144, Potassium 3.2 L, Chloride 114 H, Carbon Dioxide 21.0, Anion Gap 9, BUN 30 H, Creatinine 1.49 H, Est GFR (MDRD) Af Amer 58 L, Est GFR (MDRD) Non-Af 48 L, BUN/Creatinine Ratio 20.1 H, Glucose 103, Calcium 8.4 L, Total Bilirubin 0.80 Rhythm: EKG: ECHO: Stress Test: Cardiac Cath: PCI: CT Surgery: Holter monitor: EPS: PPM: CXR: Chest CT Scan: Physical Exam Narrative Cardiac telemetry revealed paced ventricular rhythm with underlying A. fib Patient has a left infraclavicular pacemaker generator Cardiovascular exam S1-S2 is irregular Chest exam revealed mild right lower lung crackles Examination lower extremity no clubbing no cyanosis no lower extremity edema Central nervous system exam no focal logical deficit. Assessment & Plan Assessment/Plan (1) Hypertension: (2) GERD (gastroesophageal reflux disease): (3) Elevated troponin: PLAN: This 81-year-old patient with the clinical diagnosis of pneumonia with acute encephalopathy secondary to acute pneumonia treated with antibiotic Zosyn and tested negative for Covid. Other medical problem include history of hypertension Hyperlipidemia Chronic kidney disease stage III Cardiac auscultation requested because of mild elevation of cardiac biomarker/high sensitive troponin which is consistent with type II WI with demand myocardial ischemia On cardiac evaluation by echocardiogram noted patient had severe LV systolic dysfunction ejection fraction of 20% with global LV hypokinesia Patient is established with a primary senior communications engineer Dr. Duke Cardiac recommendation and plan: 1. Patient had underlying A. fib with a pacemaker placed by the primary senior communications engineer . Continue medical treatment 2. We recommended LifeVest prior to discharge and to follow-up with his primary senior communications engineer.
--- NOTE | 2021-06-05 13:20 | CASEMGMT ---
Per Dr. Moe, pt needs lifevest placed and cardio office working on set up. Per Marcel, PCU charge, pt ok'd to be discharged home and lifevest will be placed once home. Radha AGUIRRE CM
--- NOTE | 2021-06-06 10:13 | NURSING ---
Daughter, Barbara, called with concern that LifeVest had not been delivered to pt last night as planned. Barbara stated that Life[facility] tech called and said she was not able to come and was going to get someone else, but nobody came. Customer support number for [employer] ([phone]) provided to Barbara.
== END 2021-06-05 13:46 | disposition home health service (06) | DRG 177 ==
LOC: ED 13:48 → PCU 14:15
PROVIDERS: Admitting Provider Family Medicine; Emergency Provider Emergency Medicine; PCP Family Medicine; Visit Provider Family Medicine
DX: J69.0 Pneumonitis due to inhalation of food and vomit (principal); I21.A1 Myocardial infarction type 2; G93.40 Encephalopathy, unspecified; K21.9 Gastro-esophageal reflux disease without esophagitis; J45.909 Unspecified asthma, uncomplicated; G47.33 Obstructive sleep apnea (adult) (pediatric); E78.5 Hyperlipidemia, unspecified; N18.30 Chronic kidney disease, stage 3 unspecified; Z66 Do not resuscitate; I49.5 Sick sinus syndrome; I25.9 Chronic ischemic heart disease, unspecified; I48.91 Unspecified atrial fibrillation; I13.10 Hypertensive heart and chronic kidney disease without heart failure, with stage 1 through stage 4 chronic kidney disease, or unspecified chronic kidney disease; Z82.49 Family history of ischemic heart disease and other diseases of the circulatory system; Z95.0 Presence of cardiac pacemaker
CPT/HCPCS: 36415; 36600; 70450; 71045; 80048; 80053; 80061; 81001; 82140; 82803; 83605; 83735; 84145; 84484; 85025; 85610; 85730; 87040; 87070; 87205; 87426; 87449; 87633; 87635; 92610; 93005; 93306; 93971; 97162; 97166; 99285; J7030; Q9957; U0005; A4216; J3490; U0003

== ENCOUNTER 2021-07-01 12:28 | Inpatient (IN) | payer MEDICARE, OTHER, SELFPAY ==
[2021-07-01] VITALS (12 sets, daily range): BP systolic 77–125; BP diastolic 45–66; PULSE 70–91; RESP 15–21; TEMP 36.2–36.8; O2SAT 89–100; BMI 24.9; BMI 24.3
--- NOTE | 2021-07-01 12:53 | CT_ITS ---
STUDY: CT BRAIN WITHOUT CONTRAST REASON FOR EXAM: Male, 81 years old. Frequent falls, altered mental status RADIATION DOSAGE (If Supplied By Facility): CTDIvol = ( 44.99 ) mGy, DLP = ( 846.73 ) mGycm TECHNIQUE: Transaxial CT imaging of the brain was performed without administration of intravenous contrast material. Individualized dose optimization techniques were used for this CT. COMPARISON: Comparison is made with prior study dated 06/03/2021. FINDINGS: Normal soft tissue structures. Normal calvarium. There is moderate cerebral atrophy with widening of the extra-axial spaces and ventricular dilatation. There are areas of decreased attenuation within the white matter tracts of the supratentorial brain, consistent with microvascular disease changes. There are small punctate calcifications of the basal ganglia which are seen in the aging brain as a normal variant. Normal brainstem. Normal cerebellum. There is no intracranial hemorrhage. There are no findings of an acute ischemic infarction. There is atherosclerotic calcification of the cavernous portions of the internal carotid arteries bilaterally. There is an 8.6 mm polyp or retention cyst along the inferior medial wall of the right maxillary sinus. CT/Brain/Head without Contrast IMPRESSION: Chronic involutional changes of the brain. Electronically Signed: Rufino Vazquez MD at 13:32 EST , Service support ,
--- NOTE | 2021-07-01 12:54 | EKG12_ITS ---
Test Reason : FALL Blood Pressure : / mmHG Vent. Rate : 086 BPM Atrial Rate : 086 BPM P-R Int : 166 ms QRS Dur : 176 ms QT Int : 532 ms P-R-T Axes : 000 -81 089 degrees QTc Int : 636 ms AV dual-paced rhythm Abnormal ECG Confirmed by DYLAN BROWNE, JAKE ([id number]), state editor MICHAEL PERALTA ([id number]) on 07/06/2021 10:10:41 AM Referred By: ROGELIO Confirmed By:JAKE RICHARDSON MD
--- NOTE | 2021-07-01 12:57 | EDS_ITS ---
HPI History of Present Illness Chief Complaint: Fall Detail of Chief Complaint: Frequent falls, unable to care for self Informant: patient, EMS and other Onset/Context/Timing Onset: - (Apparently patient was bowling for days. He fell twice today and pr ompted family to call EMS) Mechanism/Context: Blunt Injury and Fall Location: Complains of right hip pain Current Severity: Unable to determine Maximum Severity: Unable to determine Worsened by: Hip pain is worse with movement of the leg Relieved by: Nothing Associated Symptoms Associated Symptoms: Positive for - (Patient is denying symptoms) Narrative Narrative: Patient is an elderly male with a LifeVest on. The [email or web address] monitor is not functioning. He is requesting something to drink because he is thirsty. Apparently he has been not caring for himself. He is in a diaper. He was covered with stool. He complains of head pain as well as hip pain. He states the head pain is much less than the hip pain. He did not have black or maroon- colored stool. History is limited because of altered level of consciousness and orientation. Tetanus Immunization: Unknown Prior similar symptoms: No Recent Illness/Hospitalization: No PFSH PFSH Medical History Allergic rhinitis GERD (gastroesophageal reflux disease) HLD (hyperlipidemia) Hypertension Tachy-servando syndrome Home Medications cholecalciferol (vitamin D3) 1,000 unit PO DAILY 11/01/19 [History Last Taken 06/03/21] fluticasone propionate 1 spray NASAL BID 11/01/19 [History Last Taken 06/03/21] acetaminophen 500 - 1,000 mg PO Q6H PRN 06/03/21 [History Last Taken 06/03/21] carvedilol 6.25 mg PO BID 06/03/21 [History Last Taken 06/03/21] furosemide 40 mg PO DAILY 06/03/21 [History Last Taken 06/03/21] omeprazole 40 mg PO DAILY 06/03/21 [History Last Taken 06/03/21] polyethylene glycol 3350 [Miralax] 17 g PO DAILY 06/03/21 [History Last Taken 06/03/21] rosuvastatin 40 mg PO QHS 06/03/21 [History Last Taken 06/02/21] aspirin 81 mg PO BREAKFAST #0 tab 06/05/21 [Rx Last Taken Unknown] valsartan 40 mg PO BID 07/01/21 [History Last Taken Unknown] Allergy/AdvReac Type Severity Reaction Status Date / Time No Known Allergies Allergy Verified 07/01/21 12:34 Family History Mother Heart disease Arthritis Asthma High cholesterol Hypertension Father Heart disease Arthritis Asthma High cholesterol Hypertension Other H/O ulcer disease Kidney disease Surgical History S/P cardiac pacemaker procedure Social History household members: spouse Smoking Status: Never smoker alcohol intake: never substance use type: does not use what type of physical activity do you participate in: other ROS ROS ED Review of Systems ROS Unobtainable: due to mental status Constitutional Constitutional ED: Denies fever(s) Eyes Eyes: Denies change in vision ENT ENT ED: Reports other Details: Thirst Cardiovascular Cardiovascular: Denies chest pain Respiratory/Chest Respiratory/Chest: Denies dyspnea Gastrointestinal Gastrointestinal: Denies vomiting Musculoskeletal Musculoskeletal: Reports other Details: Right hip pain Neurologic Neurologic: Reports headache(s) Hematologic/Lymphatic Hematologic/Lymphatic: Reports other Details: Patient with multiple bruises. He is not on an anticoagulant. EXAM Physical Exam Const Vital Signs: 07/01/21 12:29 07/01/21 12:33 07/01/21 12:44 Temperature 97.1 F L 97.1 F L Temperature Source Oral Oral Pulse Rate 88 91 Respiratory Rate 21 H 19 H Respiratory Effort Normal Respiratory Depth Normal Respiratory Pattern Normal Blood Pressure 102/62 102/62 Blood Pressure Mean 75 75 Pulse Ox 98 98 98 Oxygen Delivery Method Room Air Room Air Room Air 07/01/21 15:00 Temperature Temperature Source Pulse Rate 85 Respiratory Rate 15 Respiratory Effort Respiratory Depth Respiratory Pattern Blood Pressure 113/59 L Blood Pressure Mean 77 Pulse Ox 99 Oxygen Delivery Method Room Air Positive well developed and unkempt General Appearance ED: unkempt and well developed; Negative for NAD HEENT Reports TM's clear HEENT Narrative: Tongue and mucosa are dry. tenderness; Negative for atraumatic Nose: Negative for septum abnormal Tympanic Membrane ED: Yes TM's clear Eyes PERRL and EOMs intact bilaterally General Eye ED: Yes other Other Details: Sclerae anicteric. Neck full ROM General: Negative for tenderness or other Chest Wall inspection of chest normal and palpation of chest normal Breast/Axilla Inspection: other Other Details: Patient has a LifeVest on. Resp normal respiratory effort and clear to auscultation bilaterally Cardio regular rhythm and no murmurs Rate: regular rate GI normal to inspection, nondistended, normoactive bowel sounds and non-tender Palpation: soft Back/Spine no thoracic nor lumbar tenderness General Back: Negative for CVA tenderness Extremity full ROM; Negative for normal to inspection Extremity Narrative: Patient has multiple contusions and abrasions to the lower extremity as well as upper extremity. General Extremety ED: Yes tenderness Neuro No oriented x3, CN's II-XII intact bilaterally and moves all extremities Sensorium / Orientation: oriented to person; Negative for alert Deep Tendon Reflexes: Rt Triceps (C7): 1+, Lt Triceps (C7): 1+, Rt Biceps (C5, C6): 1+, Lt Biceps (C5, C6): 1+, Rt Brachioradialis (C6): 1+, Lt Brachioradialis (C6): 1+, Rt Patellar (L4): 1+, Lt Patellar (L4): 1+, Rt Ankle (S1): 1+ and Lt Ankle (S1): 1+ Deep Tendon Reflexes Back: Rt Patellar (L4): 1+, Lt Patellar (L4): 1+, Rt Ankle (S1): 1+ and Lt Ankle (S1): 1+ Plantar Reflex: Downgoing: bilateral Psych Appearance: unkempt Skin no rashes or lesions noted Trauma: abrasion MDM MDM MDM Narrative Medical decision making narrative: Altered mental status multiple falls will obtain CT of the head to rule out for intercranial hemorrhage due to trauma. Clinically he is profoundly dehydrated. Blood work was obtained to rule out infectious versus metabolic cause of his altered mental status as well. A liter of normal saline was ordered. Because his predominant complaint is right hip pain and x-ray of the hip was obtained to rule out fracture. Dr. Chirag Ford was made aware patient. He requested the hospitalist let him know when patient is stable for surgery. He will see patient and give him his options. Lab Data Attestation: I reviewed the patient's lab results. Lab results narrative: White count elevated. This may be stress-induced versus infectious cause. Creatinine is elevated 1.93 with a GFR of 36. Glucose elevated 149 with a low CO2 and anion gap. BUN is 29. Labs: Laboratory Results - last 24 hr 07/01/21 07/01/21 07/01/21 12:59 12:59 12:59 WBC 17.8 H RBC 5.09 Hgb 15.4 Hct 46.4 MCV 91.2 MCH 30.3 MCHC 33.2 RDW Std Deviation 50.5 H RDW Coeff of Giovani 15.1 H Plt Count 158 MPV 9.5 Immature Gran % (Auto) 0.700 Neut % (Auto) 88.1 H Lymph % (Auto) 4.4 L Garza % (Auto) 5.9 Eos % (Auto) 0.3 Baso % (Auto) 0.6 Absolute Neuts (auto) 15.7 H Absolute Lymphs (auto) 0.79 L Nucleated RBC % 0 Sodium 141 Potassium 3.1 L Chloride 100 Carbon Dioxide 30.0 Anion Gap 11 BUN 29 H Creatinine 1.93 H Estim Creat Clear Calc 29.51 Est GFR (MDRD) Af Amer 43 L Est GFR (MDRD) Non-Af 36 L BUN/Creatinine Ratio 15.0 Glucose 149 H Lactic Acid 2.6 H* Calcium 8.0 L Total Bilirubin 1.10 H AST 23 ALT 41 Alkaline Phosphatase 155 H Total Protein 6.1 L Albumin 2.0 L Globulin 4.1 Albumin/Globulin Ratio 0.5 L Radiography Diagnostic Testing: Clinical Impression(s) from Imaging Studies Brain CT 07/01/21 12:53 IMPRESSION: Chronic involutional changes of the brain. Electronically Signed: Rufino Vazquez MD at 13:32 EST , Service support , Hip/Pelvis X-Ray 07/01/21 13:15 IMPRESSION: Nondisplaced impacted right subcapital fracture of the proximal femur. Electronically Signed: Rufino Vazquez MD at 13:38 EST , Service support , Chest X-Ray 07/01/21 13:21 IMPRESSION: Cardiomegaly. 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 There is no acute bleed noted. X-ray of the hip reveals a fractured hip. Patient has not impacted Escalante type II femoral neck fracture. Chest x- ray was ordered for preoperative clearance. Patient has dual-chamber pacemaker noted and has a LifeVest on which limits visibility. There is no obvious acute cardiopulmonary pathology. X-rays were interpreted by me at 1330. EKG Initial EKG: Attestation: I personally reviewed and interpreted this EKG as follows: Interpretation: Paced (AV dual paced rhythm with a ventricular rate 86.) Critical Care Time Critical Care Time: Yes Critical care time (excluding procedures): 30-74 minutes (33 minutes), Including time spent: (History, physical, documentation, interpretation of laboratory results, review of prior records), Discussing w/Consultants (Hospitalist and orthopedic surgeon), Arranging Admission or Transfer and Performing Direct Patient Care at Bedside Discharge Plan Dx/Rx/DC Orders Clinical Impression: Encephalopathy, Fracture of hip, right, closed, Acute on chronic kidney failure, Acidosis, lactic, Hypertension, Acute hypokalemia Disposition Disposition: Acute Care [facility]
[2021-07-01] MEDS: 0.9% Normal Saline 1,000 ML 1000 ML IV (13:06)
[2021-07-01 13:10] LABS: Absolute Lymphocyte Count 0.79 X10^3/uL (0.83-4.51); Absolute Neutrophil Count 15.7 X10^3/uL (2.0-7.7); Basophil% 0.6 % (0-1); Eosinophil# 0.06 X10^3/uL; Eosinophils% 0.3 % (0-5); Hematocrit 46.4 % (40-54); Hemoglobin 15.4 g/dL (13.0-16.5); Lymphocyte # 0.79 X10^3/ul (0.83-4.51); Lymphocyte % 4.4 % (19-41); Mean Corp Hgb Conc 33.2 g/dL (32-36); Mean Corpuscular Hgb 30.3 pg (27.0-32.0); Mean Corpuscular Volume 91.2 fL (80-94); Mean Platelet Vol. 9.5 fl (6.2-12.0); Monocyte# 1.05 X10^3/uL; Monocyte% 5.9 % (0-10); NRBC Flagged by Analyzer 0 % (0-5); Neutrophil # 15.66 X10^3/uL (2.7-7.7); Neutrophil % 88.1 % (47-70); Platelet Count 158 K/mm3 (150-450); RBC Distribution Width CV 15.1 % (11.6-14.6); RBC Distribution Width SD 50.5 fl (35.1-43.9); Red Blood Count 5.09 M/mm3 (4.6-6.2); White Blood Count 17.8 K/mm3 (4.4-11.0)
--- NOTE | 2021-07-01 13:15 | RAD_ITS ---
STUDY: X-RAY - PELVIS AND RIGHT HIP REASON FOR EXAM: Male, 81 years old. Injury/Pain TECHNIQUE: 3 views of the pelvis and hip. COMPARISON: None. FINDINGS: There is a non-specific bowel gas pattern. Normal visualized soft tissue structures. There is narrowing with cortical sclerosis and osteophyte formation of the sacroiliac joint consistent with degenerative osteoarthritic changes. Normal bilateral superior and inferior pubic rami. Normal pubic symphysis. Normal bilateral ischial tuberosities. There is a nondisplaced right subcapital fracture of the proximal femur. RAD/HIP, UNI W/ Pelvis 2-3 Views IMPRESSION: Nondisplaced impacted right subcapital fracture of the proximal femur. Electronically Signed: Rufino Vazquez MD at 13:38 EST , Service support ,
--- NOTE | 2021-07-01 13:21 | RAD_ITS ---
STUDY: X-RAY CHEST REASON FOR EXAM: Male, 81 years old. Frequent falls, preop TECHNIQUE: Single AP portable view of the chest. COMPARISON: Comparison is made with prior study dated 06/04/2021. FINDINGS: EKG electrodes are seen. The lungs are clear and expanded. There is no demonstrated pleural abnormality. There is moderate cardiac enlargement. A left-sided dual-chamber pacemaker is seen. Normal mediastinum and bernadette. Normal visualized pulmonary arteries. Normal visualized aortic arch and descending thoracic aorta. There are degenerative changes of the visualized thoracic spine. Normal visualized ribs, clavicles, and shoulders. There is no demonstrated abnormality of the visualized soft tissue structures of the upper abdomen. RAD/Chest 1 View IMPRESSION: Cardiomegaly. Electronically Signed: Rufino Vazquez MD at 13:40 EST , Service support ,
[2021-07-01 13:34] LABS: ALB/GLOB Ratio 0.5 RATIO (0.9-2.4); AST(SGOT) 23 U/L (15-37); Alanine Aminotransfer ALT/SGPT 41 U/L (16-61); Alkaline Phosphatase 155 U/L (45-117); Anion Gap 11 (5-15); BUN 29 mg/dL (7-18); Chloride 100 mmol/L (98-107); Creatinine, Serum 1.93 mg/dL (0.70-1.30); EST Glomerular Filtration Rate 36 mL/min (>60); Est Glom Filt Rate - Afr Amer 43 mL/min (>60); Estimated Creatinine Clearance 29.51 ml/min; Globulin 4.1 g/dL (2.2-4.2); Glucose 149 mg/dL (74-106); Potassium 3.1 mmol/L (3.5-5.1); Protein, Total 6.1 g/dL (6.4-8.2); Sodium Level 141 mmol/L (136-145)
[2021-07-01 13:39] LABS: Lactic Acid 2.6 mmol/L (0.4-1.9)
[2021-07-01] MEDS: Diphth,Pertuss(Acell),Tet Vac 0.5 ML Vial IM (16:09)
--- NOTE | 2021-07-01 16:36 | PCS.PANDOC ---
PANDEMIC DOCUMENTATION INITIATED: Date: 02/23/2021 Time: 190
--- NOTE | 2021-07-01 16:46 | HP.PCM.HOS_ITS ---
HPI - General General Date of Admission: 07/01/21 HPI Narrative CARMEN MICHAEL, is a 81 M who presents with a fall and a proximal femur fracture as seen in x-ray. The patient unfortunately does not give a history but daughter states he has been having diarrhea recently upon starting valsartan last week. When he arrived to the ED his blood pressure was stable and he had no hypotension or fevers. The subcapital fracture of right femur was reviewed with orthopedics who did say they would consider a surgical intervention but he would first need resolution of his acute medical issues & encephalopathy. CT head negative for acute findings. Chest x-ray showed cardiomegaly with pacemaker but did not show any acute pneumonia. [facility] Medical History Allergic rhinitis GERD (gastroesophageal reflux disease) HLD (hyperlipidemia) Hypertension Tachy-thomas syndrome Home Medications cholecalciferol (vitamin D3) 1,000 unit PO DAILY 11/01/19 [History Last Taken 06/30/21] fluticasone propionate 1 spray NASAL BID 11/01/19 [History Last Taken 06/30/21] acetaminophen 500 - 1,000 mg PO Q6H PRN 06/03/21 [History Last Taken 06/30/21] carvedilol 6.25 mg PO BID 06/03/21 [History Last Taken 06/30/21] furosemide 40 mg PO DAILY 06/03/21 [History Last Taken 06/30/21] omeprazole 40 mg PO DAILY 06/03/21 [History Last Taken 06/30/21] rosuvastatin 40 mg PO QHS 06/03/21 [History Last Taken 06/30/21] aspirin 81 mg PO BREAKFAST #0 tab 06/05/21 [Rx Last Taken 06/30/21] valsartan 40 mg PO BID 07/01/21 [History Last Taken Unknown] Allergy/AdvReac Type Severity Reaction Status Date / Time No Known Allergies Allergy Verified 07/01/21 12:34 Family History Mother Heart disease Arthritis Asthma High cholesterol Hypertension Father Heart disease Arthritis Asthma High cholesterol Hypertension Other H/O ulcer disease Kidney disease Surgical History S/P cardiac pacemaker procedure Social History household members: spouse Smoking Status: Never smoker alcohol intake: never substance use type: does not use what type of physical activity do you participate in: other ROS ROS Narrative Unable to obtain due to encephalopathy and his mental condition Review of Systems ROS Unobtainable: due to encephalopathy, due to endotracheal tube, due to mental condition, due to mental status and other Vital Signs Vital Signs Vital Signs: 07/01/21 12:29 07/01/21 12:33 07/01/21 12:44 Temperature 97.1 F L 97.1 F L Temperature Source Oral Oral Pulse Rate 88 91 Respiratory Rate 21 H 19 H Respiratory Effort Normal Respiratory Depth Normal Respiratory Pattern Normal Blood Pressure 102/62 102/62 Blood Pressure Mean 75 75 Blood Pressure Source Blood Pressure Position Blood Pressure Location Pulse Ox 98 98 98 Oxygen Delivery Method Room Air Room Air Room Air 07/01/21 15:00 07/01/21 15:35 07/01/21 16:31 Temperature 98.2 F 97.2 F L Temperature Source Temporal Oral Pulse Rate 85 80 70 Respiratory Rate 15 19 H 18 Respiratory Effort Respiratory Depth Respiratory Pattern Blood Pressure 113/59 L 112/63 125/66 H Blood Pressure Mean 77 79 85 Blood Pressure Source Monitor Blood Pressure Position Semi-Fowlers Blood Pressure Location Left Arm Pulse Ox 99 99 100 Oxygen Delivery Method Room Air Room Air Room Air Weight Weight: 165 lb Body Mass Index (BMI) 24.3 Physical Exam Resp normal respiratory effort and no retractions Cardio regular rate and regular rhythm GI normal to inspection, nondistended, normoactive bowel sounds and soft to palpation Extremity normal to inspection Skin no rashes or lesions noted Psych Psych Narrative: Difficult to direct Results Lab / Micro Data Result Diagrams: 07/01/21 12:59 07/01/21 12:59 Labs: Laboratory Results - last 24 hr 07/01/21 12:59: WBC 17.8 H, RBC 5.09, Hgb 15.4, Hct 46.4, MCV 91.2, MCH 30.3, MCHC 33.2, RDW Std Deviation 50.5 H, RDW Coeff of Giovani 15.1 H, Plt Count 158, MPV 9.5, Immature Gran % (Auto) 0.700, Neut % (Auto) 88.1 H, Lymph % (Auto) 4.4 L, [place] % (Auto) 5.9, Eos % (Auto) 0.3, Baso % (Auto) 0.6, Absolute Neuts (auto) 15.7 H, Absolute Lymphs (auto) 0.79 L, Nucleated RBC % 0 07/01/21 12:59: Sodium 141, Potassium 3.1 L, Chloride 100, Carbon Dioxide 30.0, Anion Gap 11, BUN 29 H, Creatinine 1.93 H, Estim Creat Clear Calc 29.51, Est GFR (MDRD) Af Amer 43 L, Est GFR (MDRD) Non-Af 36 L, BUN/Creatinine Ratio 15.0, Glucose 149 H, Calcium 8.0 L, Total Bilirubin 1.10 H, AST 23, ALT 41, Alkaline Phosphatase 155 H, Total Protein 6.1 L, Albumin 2.0 L, Globulin 4.1, Albumin/Globulin Ratio 0.5 L 07/01/21 12:59: Lactic Acid 2.6 H* 07/01/21 12:59: Magnesium 2.[address] 07/01/21 12:53 IMPRESSION: Chronic involutional changes of the brain. Electronically Signed: Rufino Vazquez MD at 13:32 EST , Service support , Hip/Pelvis X-Ray 07/01/21 13:15 IMPRESSION: Nondisplaced impacted right subcapital fracture of the proximal femur. Electronically Signed: Rufino Vazquez MD at 13:38 EST , Service support , Chest X-Ray 07/01/21 13:21 IMPRESSION: Cardiomegaly. 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 Acute Encephalopathy - CXR clear, do not suspect pneumonia at this time. - check UA - Will admit to PCU given maintain on oxygen with wean as tolerated to room air - Speech assessment, HOB, IS parameters - Diet as tolerated when mentation improves - Will need intensive nutritional support. - PT and OT - COVID vaccinated per EMR review - cover with vancomycin and unasyn and de-escalate based on clinical status and return of workup #2. Closed proximal humerus fracture - avoid weight bearing to extremity, further operative management per orthopedics. #3. Hypertension: Continue home regimen including Coreg, Hold Lasix. #4. Chronic CKD #5. Chronic Kidney Disease stage III unclear subtype versus ARCADIO: Admission BUN/Cr 39/1.64, baseline renal function unknown, repeat BMP in AM. #6. GERD: We will continue patient home PPI. #7. 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 DVT prophylaxis: Lovenox Patient is full code at this time Charges/Coding Visit Charges Inpatient E&M: 31874 Init Hosp L3
[2021-07-01 17:03] LABS: Reflex Lactate? Y
--- NOTE | 2021-07-01 17:13 | NURSING ---
per , Ken, okay to share information with Daughter, Rosario Staton, .
--- NOTE | 2021-07-01 17:45 | NURSING ---
This RN called and updated the pt's daughter, Rosario.
[2021-07-01 17:59] LABS: Lactic Acid 2.7 mmol/L (0.4-1.9)
[2021-07-01] MEDS: Lactated Ringers 1,000 ML 75 ML IV (18:34)
[2021-07-01] MEDS: Potassium Chloride Oral Tablet 20 MEQ 40 MEQ PO (18:34)
[2021-07-01] MEDS: 0.9% Saline Lock 10 ML Syringe IV (18:35)
[2021-07-01] MEDS: Acetaminophen 500 MG Tablet PO (18:45)
[2021-07-01 19:01] LABS: Bedside Glucose 103 mg/dL (70-110)
[2021-07-01] MEDS: Atorvastatin Calcium 80 MG Tablet PO (21:29)
[2021-07-01] MEDS: Glucerna Shake 120 ML LIQUID PO (21:29)
[2021-07-01] MEDS: 0.9% Normal Saline 1,000 ML 500 ML IV (23:02)
[2021-07-02] VITALS (13 sets, daily range): BP systolic 82–101; BP diastolic 53–79; PULSE 71–101; RESP 16–20; TEMP 36.5–37.1; O2SAT 94–100
--- NOTE | 2021-07-02 00:07 | PCM.RX.CS ---
Consult Pharmacy has been consulted to manage selected antiobiotic: Vancomycin Type of Consult: New start Suspected Infection: Other Prior Doses of Antibiotics Received/Current Regimen: Medications Vancomycin HCl (Vancomycin) 1,000 mg in 200 mls @ 200 mls/hr IV Q24H KIAH Vancomycin HCl 2,000 mg/ (Sodium Chloride) 540 mls @ 250 mls/hr IV X1 ONE Stop: 07/02/21 00:09 Last Admin: 07/01/21 22:34 Dose: 250 mls/hr Labs: Sodium 141 mmol/L (136-145) 07/01/21 12:59 Potassium 3.1 mmol/L (3.5-5.1) L 07/01/21 12:59 Chloride 100 mmol/L (98-107) 07/01/21 12:59 Carbon Dioxide 30.0 mmol/L (21.0-32.0) 07/01/21 12:59 Anion Gap 11 (5-15) 07/01/21 12:59 BUN 29 mg/dL (7-18) H 07/01/21 12:59 Creatinine 1.93 mg/dL (0.70-1.30) H 07/01/21 12:59 Est GFR (MDRD) Af Amer 43 mL/min (>60) L 07/01/21 12:59 Est GFR (MDRD) Non-Af 36 mL/min (>60) L 07/01/21 12:59 BUN/Creatinine Ratio 15.0 RATIO (10-20) 07/01/21 12:59 Glucose 149 mg/dL (74-106) H 07/01/21 12:59 Weight used for dosin.8 kg Estimated Creatinine Clearance: 29.5 Goal Trough: 15-20 mcg/mL Pharmacy Plan for Drug Dosing: Pharmacy Service will continue to monitor and adjust dosing as required. Follow-Up Labs: Trough Vancomycin Labs to be done on [date and time ordered]: 07/03/21 @2200
--- NOTE | 2021-07-02 00:54 | NURSING ---
while pt is sleeping his bp drops 70/40's but as soon as he wakes up bp is stable 101/60 will let know
[2021-07-02 06:58] LABS: Hematocrit 47.5 % (40-54); Hemoglobin 15.7 g/dL (13.0-16.5); Mean Corp Hgb Conc 33.1 g/dL (32-36); Mean Corpuscular Hgb 30.1 pg (27.0-32.0); Mean Corpuscular Volume 91.2 fL (80-94); Mean Platelet Vol. 10.4 fl (6.2-12.0); POSITIVE MORPHOLOGY YES; Platelet Count 153 K/mm3 (150-450); RBC Distribution Width CV 15.3 % (11.6-14.6); RBC Distribution Width SD 51.3 fl (35.1-43.9); Red Blood Count 5.21 M/mm3 (4.6-6.2); White Blood Count 20.7 K/mm3 (4.4-11.0)
[2021-07-02 07:23] LABS: Anion Gap 10 (5-15); BUN 32 mg/dL (7-18); BUN/Creat Ratio 20.1 RATIO (10-20); Calcium,Total 7.8 mg/dL (8.5-10.1); Chloride 105 mmol/L (98-107); Creatinine, Serum 1.59 mg/dL (0.70-1.30); EST Glomerular Filtration Rate 45 mL/min (>60); Est Glom Filt Rate - Afr Amer 54 mL/min (>60); Estimated Creatinine Clearance 35.82 ml/min; Glucose 92 mg/dL (74-106); Phosphorus 3.6 mg/dL (2.5-4.9); Potassium 3.4 mmol/L (3.5-5.1); Sodium Level 143 mmol/L (136-145)
[2021-07-02] MEDS: Enoxaparin 30 MG/0.3 ML Syringe SC (07:42)
[2021-07-02] MEDS: Aspirin 81 MG TAB.CHEW PO (07:42)
[2021-07-02] MEDS: Cholecalciferol (VIT D3) 25 MCG TABLET (1,000 UNITS) PO (07:42)
[2021-07-02 08:05] LABS: Scan Smear per Review Criteria MANUAL DIFF
[2021-07-02 08:06] LABS: Differential Indicated MANUAL DIFF
[2021-07-02 08:09] LABS: Neutrophil-Band 29 % (0-5); Neutrophil-Segmented 66 % (47-70); Total Cells Counted 100 (MANUAL DIFF)
[2021-07-02 08:10] LABS: Lymphocyte 1 % (19-41); Metamyelocyte 1 % (0-1); Monocyte 3 % (0-10); Platelet Estimate ADEQUATE (ADEQ); Red Cell Morphology NORM C+C NORMAL (NORM C&C)
[2021-07-02 08:12] LABS: Absolute Lymphocyte Count 0.21 X10^3/uL (0.83-4.51); Absolute Neutrophil Count 19.7 X10^3/uL (2.0-7.7)
[2021-07-02] MEDS: Potassium Chloride 10mEq/100mL 10 MEQ/100 ML IV.SOLN. 100 MEQ IV BOLUS ×4 (09:33→12:37)
[2021-07-02] MEDS: Acetaminophen 500 MG Tablet PO (10:15)
--- NOTE | 2021-07-02 12:34 | CONS.ORTHO ---
HPI Consult Data Date of Consult: 07/02/21 HPI Narrative HPI Narrative: CARMEN MICHAEL, is a 81 M who presents with multiple medical issues. He fell at home suffering a right hip fracture. He was admitted to [facility] for medical care and definitive fixation of his hip fracture when and if possible. He is demented and therefore a poor historian. [facility] Medical History Allergic rhinitis GERD (gastroesophageal reflux disease) HLD (hyperlipidemia) Hypertension Tachy-servando syndrome Home Medications cholecalciferol (vitamin D3) 1,000 unit PO DAILY 11/01/19 [History Last Taken 06/30/21] fluticasone propionate 1 spray NASAL BID 11/01/19 [History Last Taken 06/30/21] acetaminophen 500 - 1,000 mg PO Q6H PRN 06/03/21 [History Last Taken 06/30/21] carvedilol 6.25 mg PO BID 06/03/21 [History Last Taken 06/30/21] furosemide 40 mg PO DAILY 06/03/21 [History Last Taken 06/30/21] omeprazole 40 mg PO DAILY 06/03/21 [History Last Taken 06/30/21] rosuvastatin 40 mg PO QHS 06/03/21 [History Last Taken 06/30/21] aspirin 81 mg PO BREAKFAST #0 tab 06/05/21 [Rx Last Taken 06/30/21] valsartan 40 mg PO BID 07/01/21 [History Last Taken Unknown] Allergy/AdvReac Type Severity Reaction Status Date / Time No Known Allergies Allergy Verified 07/01/21 12:34 Family History Mother Heart disease Arthritis Asthma High cholesterol Hypertension Father Heart disease Arthritis Asthma High cholesterol Hypertension Other H/O ulcer disease Kidney disease Surgical History S/P cardiac pacemaker procedure Social History household members: spouse Smoking Status: Never smoker alcohol intake: never substance use type: does not use what type of physical activity do you participate in: other Vital Signs Vital Signs Vital Signs: 07/01/21 12:44 07/01/21 15:00 07/01/21 15:35 Temperature 98.2 F Temperature Source Temporal Pulse Rate 85 80 Pulse Strength Respiratory Rate 15 19 H Respiratory Effort Normal Respiratory Depth Normal Respiratory Pattern Normal Blood Pressure 113/59 L 112/63 Blood Pressure [2nd BP] Blood Pressure Mean 77 79 Blood Pressure Mean [2nd BP] Blood Pressure Source Blood Pressure Source [2nd BP] Blood Pressure Position Blood Pressure Position [2nd BP] Blood Pressure Location Blood Pressure Location [2nd BP] Pulse Ox 98 99 99 Oxygen Delivery Method Room Air Room Air Room Air Oxygen Flow Rate (L/min) 07/01/21 16:31 07/01/21 16:58 07/01/21 17:21 Temperature 97.2 F L Temperature Source Oral Pulse Rate 70 88 Pulse Strength Respiratory Rate 18 Respiratory Effort Normal Non-Labored Respiratory Depth Normal Respiratory Pattern Normal Blood Pressure 125/66 H Blood Pressure [2nd BP] Blood Pressure Mean 85 Blood Pressure Mean [2nd BP] Blood Pressure Source Monitor Blood Pressure Source [2nd BP] Blood Pressure Position Semi-Fowlers Blood Pressure Position [2nd BP] Blood Pressure Location Left Arm Blood Pressure Location [2nd BP] Pulse Ox 100 Oxygen Delivery Method Room Air Room Air Oxygen Flow Rate (L/min) 07/01/21 20:30 07/01/21 22:00 07/01/21 22:13 Temperature 98.2 F Temperature Source Oral Pulse Rate 87 Pulse Strength Respiratory Rate 20 H Respiratory Effort Normal Respiratory Depth Normal Respiratory Pattern Blood Pressure 82/49 L Blood Pressure [2nd BP] Blood Pressure Mean 60 Blood Pressure Mean [2nd BP] Blood Pressure Source Monitor Blood Pressure Source [2nd BP] Blood Pressure Position Semi-Fowlers Blood Pressure Position [2nd BP] Blood Pressure Location Left Arm Blood Pressure Location [2nd BP] Pulse Ox 97 89 Oxygen Delivery Method Room Air Room Air Room Air Oxygen Flow Rate (L/min) 07/01/21 22:15 07/01/21 22:46 07/01/21 22:58 Temperature Temperature Source Pulse Rate 85 Pulse Strength Respiratory Rate 18 16 Respiratory Effort Respiratory Depth Respiratory Pattern Blood Pressure Blood Pressure [2nd BP] 77/47 L 84/45 L 96/57 L Blood Pressure Mean Blood Pressure Mean [2nd BP] 57 58 70 Blood Pressure Source Blood Pressure Source [2nd BP] Monitor Monitor Monitor Blood Pressure Position Blood Pressure Position [2nd BP] Semi-Fowlers Semi-Fowlers Semi-Fowlers Blood Pressure Location Blood Pressure Location [2nd BP] Right Arm Left Arm Left Arm Pulse Ox 96 98 Oxygen Delivery Method Nasal Cannula Oxygen Flow Rate (L/min) 2 2 07/02/21 00:54 07/02/21 05:00 07/02/21 05:42 Temperature 98.2 F Temperature Source Oral Pulse Rate 87 97 Pulse Strength Respiratory Rate 20 H Respiratory Effort Respiratory Depth Respiratory Pattern Blood Pressure 101/79 Blood Pressure [2nd BP] 101/60 Blood Pressure Mean 86 Blood Pressure Mean [2nd BP] 73 Blood Pressure Source Monitor Blood Pressure Source [2nd BP] Monitor Blood Pressure Position Semi-Fowlers Blood Pressure Position [2nd BP] Supine Blood Pressure Location Left Arm Blood Pressure Location [2nd BP] Left Arm Pulse Ox 95 Oxygen Delivery Method Nasal Cannula Oxygen Flow Rate (L/min) 2 07/02/21 07:23 07/02/21 07:37 07/02/21 08:52 Temperature 97.9 F Temperature Source Oral Pulse Rate 89 92 Pulse Strength Respiratory Rate 18 Respiratory Effort Respiratory Depth Respiratory Pattern Blood Pressure 100/60 Blood Pressure [2nd BP] Blood Pressure Mean 73 Blood Pressure Mean [2nd BP] Blood Pressure Source Monitor Blood Pressure Source [2nd BP] Blood Pressure Position Semi-Fowlers Blood Pressure Position [2nd BP] Blood Pressure Location Left Arm Blood Pressure Location [2nd BP] Pulse Ox 94 94 Oxygen Delivery Method Nasal Cannula Nasal Cannula Oxygen Flow Rate (L/min) 2 2 07/02/21 09:08 07/02/21 10:00 07/02/21 11:00 Temperature 97.9 F 97.7 F L Temperature Source Temporal Oral Pulse Rate 101 H 87 Pulse Strength Weak (1+) Respiratory Rate 18 16 Respiratory Effort Non-Labored Respiratory Depth Normal Respiratory Pattern Normal Blood Pressure 82/57 L 93/64 Blood Pressure [2nd BP] Blood Pressure Mean 65 73 Blood Pressure Mean [2nd BP] Blood Pressure Source Monitor Monitor Blood Pressure Source [2nd BP] Blood Pressure Position Semi-Fowlers Semi-Fowlers Blood Pressure Position [2nd BP] Blood Pressure Location Right Arm Right Arm Blood Pressure Location [2nd BP] Pulse Ox 96 99 Oxygen Delivery Method Nasal Cannula Nasal Cannula Nasal Cannula Oxygen Flow Rate (L/min) 2 2 2 Weight Weight: 165 lb Body Mass Index (BMI) 24.3 Physical Exam Const alert and no apparent distress Orientation / Consciousness: confused Extremity normal capillary refill, no clubbing, cyanosis or edema and no calf tenderness Extremity Narrative: Right hip is painful to palpation. ROM not tested due to known fracture. Lab / Micro Data Result Diagrams: 07/02/21 06:25 07/02/21 06:25 Labs: Laboratory Results - last 24 hr 07/01/21 12:59: WBC 17.8 H, RBC 5.09, Hgb 15.4, Hct 46.4, MCV 91.2, MCH 30.3, MCHC 33.2, RDW Std Deviation 50.5 H, RDW Coeff of Giovani 15.1 H, Plt Count 158, MPV 9.5, Immature Gran % (Auto) 0.700, Neut % (Auto) 88.1 H, Lymph % (Auto) 4.4 L, [place] % (Auto) 5.9, Eos % (Auto) 0.3, Baso % (Auto) 0.6, Absolute Neuts (auto) 15.7 H, Absolute Lymphs (auto) 0.79 L, Nucleated RBC % 0 07/01/21 12:59: Sodium 141, Potassium 3.1 L, Chloride 100, Carbon Dioxide 30.0, Anion Gap 11, BUN 29 H, Creatinine 1.93 H, Estim Creat Clear Calc 29.51, Est GFR (MDRD) Af Amer 43 L, Est GFR (MDRD) Non-Af 36 L, BUN/Creatinine Ratio 15.0, Glucose 149 H, Calcium 8.0 L, Total Bilirubin 1.10 H, AST 23, ALT 41, Alkaline Phosphatase 155 H, Total Protein 6.1 L, Albumin 2.0 L, Globulin 4.1, Albumin/Globulin Ratio 0.5 L 07/01/21 12:59: Lactic Acid 2.6 H* 07/01/21 12:59: Magnesium 2.0 07/01/21 17:16: Lactic Acid 2.7 H* 07/01/21 18:57: POC Glucose 103 07/02/21 06:25: WBC 20.7 H, RBC 5.21, Hgb 15.7, Hct 47.5, MCV 91.2, MCH 30.1, MCHC 33.1, RDW Std Deviation 51.3 H, RDW Coeff of Giovani 15.3 H, Plt Count 153, MPV 10.4, Immature Gran % (Auto) [employer]EE [employer]PLICATION DEVELOPER, Neut % (Auto) [employer]EE APPLICATION DEVELOPER, Lymph % (Auto) J[employer]EE APPLICATION DEVELOPER, [place] % (Auto) JAVA [employer]EE APPLICATION DEVELOPER, Eos % (Auto) JAVA [employer]EE APPLICATION DEVELOPER, Baso % (Auto) [employer]EE APPLICATION DEVELOPER, Absolute Neuts (auto) 19.7 H, Absolute Lymphs (auto) 0.21 L, Total Counted 100, Neutrophils % (Manual) 66, Band Neutrophils % 29 H, Lymphocytes % (Manual) 1 L, Monocytes % (Manual) 3, Metamyelocytes % 1, Nucleated RBC % [employer] APPLICATION DEVELOPER, Diff Path Review May , Platelet Estimate ADEQUATE, RBC Morphology NORM C+C 07/02/21 06:25: Sodium 143, Potassium 3.4 L, Chloride 105, Carbon Dioxide 28.0, Anion Gap 10, BUN 32 H, Creatinine 1.59 H, Estim Creat Clear Calc 35.82, Est GFR (MDRD) Af Amer 54 L, Est GFR (MDRD) Non-Af 45 L, BUN/Creatinine Ratio 20.1 H, Glucose 92, Calcium 7.8 L, Phosphorus 3.6, Magnesium 2.0 Micro: Microbiology 07/02/21 02:52 Stool C. difficile GDH Antigen & Toxins - Final Toxigenic C. difficile 07/02/21 02:52 Stool C. difficile DNA Amplification - Final 07/01/21 19:30 Stool Enteric Bacteriology - Final Radiology Impression Brain CT 07/01/21 12:53 IMPRESSION: Chronic involutional changes of the brain. Electronically Signed: Rufino Vazquez MD at 13:32 EST , Service support , Hip/Pelvis X-Ray 07/01/21 13:15 IMPRESSION: Nondisplaced impacted right subcapital fracture of the proximal femur. Electronically Signed: Rufino Vazquez MD at 13:38 EST , Service support , Chest X-Ray 07/01/21 13:21 IMPRESSION: Cardiomegaly. Electronically Signed: Rufino Vazquez MD at 13:40 EST , Service support , Assessment & Plan Assessment/Plan (1) Fracture of hip, right, closed: PLAN: Review of xrays reveals a displaced subcapital right hip fracture. When he stabilizes medically, he would benefit from a hemiarthroplasty of the right hip. However, with is multiple medical issues, he is not suitable for surgery at this time. Will re-evaluate tomorrow.
--- NOTE | 2021-07-02 13:39 | NURSING ---
Home meds returned to at this time to take home.
--- NOTE | 2021-07-02 13:47 | PN.HOSP_ITS ---
Documented by User: Jerry YAO 07/02/21 13:56 Subjective Subjective Patient is an 81-year-old male lying in bed, alert and oriented to self. Patient cannot provide much insight into his current condition as he is acutely confused. Does not appear in acute distress. Objective Data Objective Data Vital Signs: Vital Signs Temp Pulse Resp BP Pulse Ox 97.7 F L 87 16 93/64 99 07/02/21 11:00 07/02/21 11:00 07/02/21 11:00 07/02/21 11:00 07/02/21 11:00 Oxygen Flow Rate (L/min) 2 Oxygen Delivery Method Nasal Cannula Weight: 165 lb Body Mass Index (BMI) 24.3 Intake & Output: Intake and Output for Last 24 Hours 06/30/21 07/01/21 07/02/21 23:59 23:59 23:59 Intake Total 1112 / 1112 2678.25 / 2678.25 Balance 1112 / 1112 2678.25 / 2678.25 Lab / Micro Data Result Diagrams: 07/02/21 06:25 07/02/21 06:25 Labs: Laboratory Results - last 24 hr 07/01/21 12:59: Magnesium 2.0 07/01/21 17:16: Lactic Acid 2.7 H* 07/01/21 18:57: POC Glucose 103 07/02/21 06:25: WBC 20.7 H, RBC 5.21, Hgb 15.7, Hct 47.5, MCV 91.2, MCH 30.1, MCHC 33.1, RDW Std Deviation 51.3 H, RDW Coeff of Giovani 15.3 H, Plt Count 153, MPV 10.4, Immature Gran % (Auto) [employer]ICATING SHOP HELPER, Neut % (Auto) [employer] FABRICATING SHOP HELPER, Lymph % (Auto) [employer] FABRICATING SHOP HELPER, [place] % (Auto) METAL FABRICATING SHOP HELPER, Eos % (Auto) MET[employer] FABRICATING SHOP HELPER, Baso % (Auto) [employer] FABRICATING SHOP HELPER, Absolute Neuts (auto) 19.7 H, Absolute Lymphs (auto) 0.21 L, Total Counted 100, Neutrophils % (Manual) 66, Band Neutrophils % 29 H, Lymphocytes % (Manual) 1 L, Monocytes % (Manual) 3, Metamyelocytes % 1, Nucleated RBC % [employer] FAB[employer]ICATING SHOP HELPER, Diff Path Review May foll, Platelet Estimate ADEQUATE, RBC Morphology NORM C+C 07/02/21 06:25: Sodium 143, Potassium 3.4 L, Chloride 105, Carbon Dioxide 28.0, Anion Gap 10, BUN 32 H, Creatinine 1.59 H, Estim Creat Clear Calc 35.82, Est GFR (MDRD) Af Amer 54 L, Est GFR (MDRD) Non-Af 45 L, BUN/Creatinine Ratio 20.1 H, Glucose 92, Calcium 7.8 L, Phosphorus 3.6, Magnesium 2.0 Micro: Microbiology 07/02/21 02:52 Stool C. difficile GDH Antigen & Toxins - Final Toxigenic C. difficile 07/02/21 02:52 Stool C. difficile DNA Amplification - Final 07/01/21 19:30 Stool Enteric Bacteriology - Final Physical Exam Const alert Orientation / Consciousness: confused HEENT head/scalp atraumatic and moist oral mucous membranes Head and Scalp: normocephalic Eyes PERRL, EOMs intact bilaterally and conjunctivae normal Neck no lymphadenopathy, supple and no JVD Resp normal respiratory effort, no retractions, no use of accessory muscles and clear to auscultation bilaterally Cardio regular rate, regular rhythm, no murmurs and no JVD GI normal to inspection, nondistended, normoactive bowel sounds, soft to palpation and non-tender Extremity normal to inspection, full ROM and no clubbing, cyanosis or edema Skin no rashes or lesions noted, no wounds and skin turgor normal Neuro CN's II-XII intact bilaterally Psych affect normal Assessment & Plan Assessment/Plan (1) Encephalopathy: PLAN: Day 1 Discharge planning: To be determined. 1) acute encephalopathy secondary to toxigenic C. difficile C. difficile antigen and toxin positive. White count still elevated at 20,000. Lactate elevated at 2.7 on admission. Vancomycin 125 mg p.o. 4 times daily initiated. Vital signs stable and patient is afebrile. Continue to monitor CBC and CMP. 2) closed right hip fracture Hip x-ray reveals a displaced subcapital right hip fracture. Orthopedics consulted and believes patient is not a good candidate for surgery given his ongoing medical problems at this time. We will continue to follow and reevaluate for hemiarthroplasty. 3) HTN Stable, continue Coreg, hold Lasix. 4) CKD stage IIIb Creatinine currently 1.59, BUN is 32. Baseline renal function unknown. Continue to monitor BMP. 5) GERD Continue PPI. 6) tachybradycardia syndrome Status post pacemaker, rate currently controlled. DVT prophylaxis - Lovenox Patient seen by Jerry Lopez PA-C, under the supervision of Dr. Corea. Documented by User: Dr. Aundrea Corea MD 07/02/21 15:27 Objective Data Lab / Micro Data Result Diagrams: 07/02/21 06:25 07/02/21 06:25 Charges/Coding Addendum Addendum: This patient was seen in conjunction with MAXIMILIAN Manrique. I have independently interviewed and examined the patient and reviewed pertinent historical, laboratory, and other data. Please refer to MAXIMILIAN Manrique's note for his patient's presentation, findings, and recommendations. I have reviewed and his note and concur with his documentation Patient was seen and examined. His is at the bedside. He has had 2 bowel movement. Stool for C. difficile came back positive. He is hard of hearing. His stated that his mentation was at his baseline. Physical Exam: Gen: Comfortable, not pale, not jaundiced CVS:HS I +II, regular, no murmurs RESP: Diminished at lung bases GI: BS present and normal, soft, nontender, no palpable organs EXT:No edema ASSESSMENT: 1. Acute metabolic encephalopathy, appears resolved 2. Acute C. difficile infection 3. Closed right hip fracture 4. Hypertension 5. CKD stage IIIb 6. GERD Plan: Start on oral vancomycin Replace potassium Continue to monitor Repeat blood work in a.m. Visit Charges Inpatient E&M: 30286 Subs Hosp L2
[2021-07-02 14:06] LABS: Pathologist Review Reviewed
[2021-07-02] MEDS: Vancomycin 125 MG/5 ML Susp PO.SYRINGE PO ×2 (17:17→23:46)
[2021-07-02] MEDS: Atorvastatin Calcium 80 MG Tablet PO (21:25)
[2021-07-03] VITALS (19 sets, daily range): BP systolic 74–129; BP diastolic 46–96; PULSE 78–115; RESP 17–24; TEMP 36–36.9; O2SAT 95–96
[2021-07-03] MEDS: 0.9% Saline Lock 10 ML Syringe IV (01:36)
[2021-07-03] MEDS: Acetaminophen 500 MG Tablet PO (04:53)
[2021-07-03] MEDS: Vancomycin 125 MG/5 ML Susp PO.SYRINGE PO ×2 (05:52→11:01)
[2021-07-03 07:00] LABS: Color, Urine Brown (Yellow); Glucose, Dipstick Normal (Normal); Ketone-Dipstick 15 mg/dl (Negative); Leukocyte Esterase-Dipstick 25 /ul (Negative); Nitrite-Dipstick Negative (Negative); Occult Blood-Urine 25 /ul (Negative); Protein-Dipstick 100 mg/dl (Negative); Specific Gravity, Urine 1.025 (1.002-1.030); Urine Bilirubin Dipstick 1 mg/dL (Negative); Urine Clarity Turbid (Clear); Urine Urobilinogen 4 mg/dl (Normal)
[2021-07-03 07:35] LABS: Absolute Lymphocyte Count 0.85 X10^3/uL (0.83-4.51); Absolute Neutrophil Count 19.7 X10^3/uL (2.0-7.7); Basophil# 0.01 X10^3/uL; Eosinophil# 0.01 X10^3/uL; Hematocrit 49.4 % (40-54); Hemoglobin 16.2 g/dL (13.0-16.5); Lymphocyte # 0.85 X10^3/ul (0.83-4.51); Lymphocyte % 3.9 % (19-41); Mean Corp Hgb Conc 32.8 g/dL (32-36); Mean Corpuscular Hgb 29.5 pg (27.0-32.0); Mean Platelet Vol. 10.7 fl (6.2-12.0); Monocyte# 1.05 X10^3/uL; Monocyte% 4.8 % (0-10); NRBC Flagged by Analyzer 0 % (0-5); Neutrophil # 19.71 X10^3/uL (2.7-7.7); Neutrophil % 89.8 % (47-70); POSITIVE MORPHOLOGY YES; Platelet Count 144 K/mm3 (150-450); RBC Distribution Width SD 49.6 fl (35.1-43.9); Red Blood Count 5.49 M/mm3 (4.6-6.2)
[2021-07-03 07:36] LABS: Differential Indicated SCAN CRITERIA MET
[2021-07-03 08:03] LABS: Differential Comment SCANNED
[2021-07-03 08:19] LABS: Anion Gap 9 (5-15); BUN 48 mg/dL (7-18); BUN/Creat Ratio 17.7 RATIO (10-20); Calcium,Total 7.6 mg/dL (8.5-10.1); Chloride 104 mmol/L (98-107); Creatinine, Serum 2.71 mg/dL (0.70-1.30); EST Glomerular Filtration Rate 24 mL/min (>60); Est Glom Filt Rate - Afr Amer 29 mL/min (>60); Estimated Creatinine Clearance 21.02 ml/min; Glucose 140 mg/dL (74-106); Magnesium 2.2 mg/dL (1.6-2.6); Phosphorus 3.7 mg/dL (2.5-4.9); Potassium 4.3 mmol/L (3.5-5.1); Sodium Level 136 mmol/L (136-145)
[2021-07-03] MEDS: Aspirin 81 MG TAB.CHEW PO (09:43)
[2021-07-03] MEDS: Cholecalciferol (VIT D3) 25 MCG TABLET (1,000 UNITS) PO (09:43)
[2021-07-03] MEDS: oxyCODONE 5 MG Tablet PO (09:43)
[2021-07-03] MEDS: Enoxaparin 30 MG/0.3 ML Syringe SC (09:44)
[2021-07-03] MEDS: 0.9% Normal Saline 1,000 ML 150 ML IV ×2 (11:01→17:06)
--- NOTE | 2021-07-03 11:37 | PN.HOSP_ITS ---
Documented by User: Jerry YAO 07/03/21 11:45 Subjective Subjective Patient is an 81-year-old male lying in bed, alert to self. Patient unable to provide much insight into current condition as he is acutely confused, mental status appears slightly worse than yesterday as he is unable to conduct convers ation and only screams out in pain. Objective Data Objective Data Vital Signs: Vital Signs Temp Pulse Resp BP Pulse Ox 98.4 F 93 18 129/96 H 96 07/03/21 09:55 07/03/21 09:55 07/03/21 09:55 07/03/21 09:55 07/03/21 09:55 Oxygen Flow Rate (L/min) 2 Oxygen Delivery Method Nasal Cannula Weight: 165 lb Body Mass Index (BMI) 24.3 Intake & Output: Intake and Output for Last 24 Hours 07/01/21 07/02/21 07/03/21 23:59 23:59 23:59 Intake Total 1112 / 1112 2678.25 / 2678.25 500 / 500 Output Total 125 / 125 Balance 1112 / 1112 2678.25 / 2603.25 375 / 375 Lab / Micro Data Result Diagrams: 07/03/21 07:00 07/03/21 07:00 Labs: Laboratory Results - last 24 hr 07/02/21 06:25: Diff Path Review Reviewed 07/03/21 06:21: Urine Color Brown, Urine Clarity Turbid, Urine pH 5.0, Ur Specific G[place] 1.025, Urine Protein 100 H, Urine Glucose (UA) Normal, Urine Ketones 15 H, Urine Occult Blood 25 H, Urine Nitrite Negative, Urine Bilirubin 1 H, Urine Urobilinogen 4 H, Ur Leukocyte Esterase 25 H 07/03/21 07:00: WBC 22.0 H, RBC 5.49, Hgb 16.2, Hct 49.4, MCV 90.0, MCH 29.5, MCHC 32.8, RDW Std Deviation 49.6 H, RDW Coeff of Giovani 15.0 H, Plt Count 144 L, MPV 10.7, Immature Gran % (Auto) 1.500 H, Neut % (Auto) 89.8 H, Lymph % (Auto) 3.9 L, [place] % (Auto) 4.8, Eos % (Auto) 0.0, Baso % (Auto) 0.0, Absolute Neuts (auto) 19.7 H, Absolute Lymphs (auto) 0.85, Nucleated RBC % 0, Differential Comment SCANNED 07/03/21 07:00: Sodium 136, Potassium 4.3, Chloride 104, Carbon Dioxide 23.0, Anion Gap 9, BUN 48 H, Creatinine 2.71 H, Estim Creat Clear Calc 21.02, Est GFR (MDRD) Af Amer 29 L, Est GFR (MDRD) Non-Af 24 L, BUN/Creatinine Ratio 17.7, Glucose 140 H, Calcium 7.6 L, Phosphorus 3.7, Magnesium 2.2 Micro: Microbiology 07/02/21 02:52 Stool C. difficile GDH Antigen & Toxins - Final Toxigenic C. difficile 07/02/21 02:52 Stool C. difficile DNA Amplification - Final 07/01/21 19:30 Stool Enteric Bacteriology - Final Physical Exam Const alert Orientation / Consciousness: confused and disoriented HEENT head/scalp atraumatic and moist oral mucous membranes Head and Scalp: normocephalic Eyes PERRL, EOMs intact bilaterally and conjunctivae normal Neck no lymphadenopathy, supple and no JVD Resp normal respiratory effort, no retractions, no use of accessory muscles and clear to auscultation bilaterally Cardio regular rate, regular rhythm, no murmurs and no JVD GI normal to inspection, nondistended, normoactive bowel sounds, soft to palpation and non-tender Extremity normal to inspection, full ROM and no clubbing, cyanosis or edema Skin no rashes or lesions noted, no wounds and skin turgor normal Neuro CN's II-XII intact bilaterally Psych affect normal Assessment & Plan Assessment/Plan (1) Encephalopathy: (2) Fracture of hip, right, closed: PLAN: Day 2 Discharge planning: To be determined. 1) acute encephalopathy secondary to toxigenic C. difficile C. difficile antigen and toxin positive. White count still elevated at 22,000. Lactate elevated at 2.7 on admission. Vancomycin 125 mg p.o. 4 times daily initiated. Vital signs stable and patient is afebrile. Continue to monitor CBC and CMP. 2) closed right hip fracture Hip x-ray reveals a displaced subcapital right hip fracture. Orthopedics consult ed and believes patient is not a good candidate for surgery given his ongoing medical problems at this time. They will continue to follow and reevaluate for hemiarthroplasty. 3) HTN Stable, continue Coreg, hold Lasix. 4) ARCADIO on CKD stage IIIb Creatinine currently 2.71, up from admission. Baseline renal function unknown. Fluid bolus given as well as drip initiated thereafter. Continue to monitor BMP. 5) GERD Continue PPI. 6) tachybradycardia syndrome Status post pacemaker, rate currently controlled. DVT prophylaxis - Lovenox Patient seen by Jerry Lopez PA-C, under the supervision of Dr. Corea. Documented by User: Dr. Aundrea Corea MD 07/03/21 13:24 Objective Data Lab / Micro Data Result Diagrams: 07/03/21 07:00 07/03/21 07:00 Charges/Coding Addendum Addendum: This patient was seen in conjunction with MAXIMILIAN Manrique. I have independently interviewed and examined the patient and reviewed pertinent historical, laboratory, and other data. Please refer to MAXIMILIAN Manrique's note for his patient's presentation, findings, and recommendations. I have reviewed and his note and concur with his documentation Patient was seen and examined. He appears more confused. Physical Exam: Gen: Comfortable, not pale, not jaundiced CVS:HS I +II, regular, no murmurs RESP: Diminished at lung bases GI: BS present and normal, soft, nontender, no palpable organs EXT:No edema ASSESSMENT: 1. Acute metabolic encephalopathy, worsening today, exacerbated by underlying cognitive impairment, current fracture, uncontrolled pain, hearing impairment 2. Acute C. difficile infection 3. Closed right hip fracture 4. Hypertension 5. ARCADIO on CKD stage IIIb 6. GERD Plan: Continue on oral vancomycin IV fluids, monitor urine output change pain meds to scheduled Tylenol with as needed oxycodone Repeat blood work in a.m. Visit Charges Inpatient E&M: 57490 Subs Hosp L2
[2021-07-03] MEDS: Glucerna Shake 120 ML LIQUID PO ×2 (13:49→22:12)
[2021-07-03] MEDS: Acetaminophen 500 MG Tablet 1000 MG PO ×2 (13:49→22:10)
[2021-07-03] MEDS: 0.9% Normal Saline 1,000 ML 999 ML IV (17:27)
[2021-07-03 18:23] LABS: Anion Gap 9 (5-15); BUN 56 mg/dL (7-18); BUN/Creat Ratio 17.3 RATIO (10-20); Calcium,Total 7.3 mg/dL (8.5-10.1); Chloride 107 mmol/L (98-107); Creatinine, Serum 3.24 mg/dL (0.70-1.30); EST Glomerular Filtration Rate 20 mL/min (>60); Est Glom Filt Rate - Afr Amer 24 mL/min (>60); Estimated Creatinine Clearance 17.58 ml/min; Glucose 168 mg/dL (74-106); Potassium 4.3 mmol/L (3.5-5.1); Sodium Level 138 mmol/L (136-145)
--- NOTE | 2021-07-03 18:26 | NURSING ---
2L via NC applied at this time due to periods of sleep apnea
[2021-07-03 18:35] LABS: Ammonia < 10.0 umol/L (11-32)
[2021-07-04] VITALS (8 sets, daily range): BP systolic 74–99; BP diastolic 55–62; PULSE 93–104; RESP 20–28; TEMP 35.8–37; O2SAT 96–102
[2021-07-04] MEDS: Vancomycin 125 MG/5 ML Susp PO.SYRINGE PO ×3 (00:53→13:38)
[2021-07-04] MEDS: 0.9% Normal Saline 1,000 ML 150 ML IV ×2 (01:05→09:03)
[2021-07-04 06:05] LABS: Absolute Lymphocyte Count 0.82 X10^3/uL (0.83-4.51); Absolute Neutrophil Count 14.9 X10^3/uL (2.0-7.7); Basophil# 0.01 X10^3/uL; Basophil% 0.1 % (0-1); Eosinophil# 0.03 X10^3/uL; Eosinophils% 0.2 % (0-5); Lymphocyte # 0.82 X10^3/ul (0.83-4.51); Lymphocyte % 4.8 % (19-41); Mean Corp Hgb Conc 32.7 g/dL (32-36); Mean Corpuscular Hgb 29.7 pg (27.0-32.0); Mean Corpuscular Volume 90.9 fL (80-94); Mean Platelet Vol. 9.8 fl (6.2-12.0); Monocyte# 0.86 X10^3/uL; Monocyte% 5.1 % (0-10); NRBC Flagged by Analyzer 0 % (0-5); Neutrophil # 14.87 X10^3/uL (2.7-7.7); Neutrophil % 87.8 % (47-70); POSITIVE MORPHOLOGY YES; Platelet Count 118 K/mm3 (150-450); RBC Distribution Width CV 15.3 % (11.6-14.6); RBC Distribution Width SD 50.4 fl (35.1-43.9); Red Blood Count 5.39 M/mm3 (4.6-6.2); White Blood Count 16.9 K/mm3 (4.4-11.0)
[2021-07-04 06:06] LABS: Differential Indicated SCAN CRITERIA MET
[2021-07-04] MEDS: Acetaminophen 500 MG Tablet 1000 MG PO (06:16)
[2021-07-04 06:30] LABS: Differential Comment SCANNED
[2021-07-04 06:33] LABS: Anion Gap 8 (5-15); BUN 62 mg/dL (7-18); BUN/Creat Ratio 18.7 RATIO (10-20); Calcium,Total 7.7 mg/dL (8.5-10.1); Chloride 110 mmol/L (98-107); Creatinine, Serum 3.32 mg/dL (0.70-1.30); EST Glomerular Filtration Rate 19 mL/min (>60); Est Glom Filt Rate - Afr Amer 23 mL/min (>60); Estimated Creatinine Clearance 17.15 ml/min; Glucose 115 mg/dL (74-106); Magnesium 2.3 mg/dL (1.6-2.6); Phosphorus 4.2 mg/dL (2.5-4.9); Potassium 4.4 mmol/L (3.5-5.1); Sodium Level 138 mmol/L (136-145)
[2021-07-04 08:54] LABS: AST(SGOT) 247 U/L (15-37); Alanine Aminotransfer ALT/SGPT 186 U/L (16-61); Albumin, Serum 1.2 g/dL (3.2-5.0); Alkaline Phosphatase 173 U/L (45-117); Bilirubin, Direct 0.18 mg/dL (0.00-0.30); Globulin 3.6 g/dL (2.2-4.2); Protein, Total 4.8 g/dL (6.4-8.2)
[2021-07-04] MEDS: Enoxaparin 30 MG/0.3 ML Syringe SC (09:02)
[2021-07-04] MEDS: 0.9% Normal Saline 1,000 ML 999 ML IV (10:22)
[2021-07-04] MEDS: Aspirin 81 MG TAB.CHEW PO (10:23)
[2021-07-04] MEDS: Cholecalciferol (VIT D3) 25 MCG TABLET (1,000 UNITS) PO (10:23)
[2021-07-04] MEDS: Glucerna Shake 120 ML LIQUID PO (10:26)
--- NOTE | 2021-07-04 10:42 | PN.HOSP_ITS ---
Documented by User: Jerry YAO 07/04/21 11:02 Subjective Subjective Patient is an 81-year-old male lying in bed, alert to self. Patient cannot provide much insight into his current condition as he is acutely confused and has been since admission. Patient has not made much improvement in regards to his confusion or overall clinical status since admission. Objective Data Objective Data Vital Signs: Vital Signs Temp Pulse Resp BP Pulse Ox 96.4 F L 103 H 22 H 97/59 L 99 07/04/21 10:18 07/04/21 10:18 07/04/21 10:18 07/04/21 10:18 07/04/21 10:18 Oxygen Flow Rate (L/min) 2 Oxygen Delivery Method Nasal Cannula Weight: 165 lb Body Mass Index (BMI) 24.3 Intake & Output: Intake and Output for Last 24 Hours 07/02/21 07/03/21 07/04/21 23:59 23:59 23:59 Intake Total 2678.25 / 2678.25 2704.0 / 2704.0 1947.5 / 1947.5 Output Total 126 / 126 Balance 2678.25 / 2603.25 2578.0 / 2578.0 1947.5 / 1947.5 Lab / Micro Data Result Diagrams: 07/04/21 05:53 07/04/21 05:53 Labs: Laboratory Results - last 24 hr 07/03/21 18:03: Ammonia < 10.0 L 07/03/21 18:03: Sodium 138, Potassium 4.3, Chloride 107, Carbon Dioxide 22.0, Anion Gap 9, BUN 56 H, Creatinine 3.24 H, Estim Creat Clear Calc 17.58, Est GFR (MDRD) Af Amer 24 L, Est GFR (MDRD) Non-Af 20 L, BUN/Creatinine Ratio 17.3, Glucose 168 H, Calcium 7.3 L 07/04/21 05:53: WBC 16.9 H, RBC 5.39, Hgb 16.0, Hct 49.0, MCV 90.9, MCH 29.7, MCHC 32.7, RDW Std Deviation 50.4 H, RDW Coeff of Giovani 15.3 H, Plt Count 118 L, MPV 9.8, Immature Gran % (Auto) 2.000 H, Neut % (Auto) 87.8 H, Lymph % (Auto) 4.8 L, [place] % (Auto) 5.1, Eos % (Auto) 0.2, Baso % (Auto) 0.1, Absolute Neuts (auto) 14.9 H, Absolute Lymphs (auto) 0.82 L, Nucleated RBC % 0, Differential Comment SCANNED 07/04/21 05:53: Sodium 138, Potassium 4.4, Chloride 110 H, Carbon Dioxide 20.0 L , Anion Gap 8, BUN 62 H, Creatinine 3.32 H, Estim Creat Clear Calc 17.15, Est GFR (MDRD) Af Amer 23 L, Est GFR (MDRD) Non-Af 19 L, BUN/Creatinine Ratio 18.7, Glucose 115 H, Calcium 7.7 L, Phosphorus 4.2, Magnesium 2.3 07/04/21 05:53: Total Bilirubin 0.40, Direct Bilirubin 0.18, AST 247 H, ALT 186 H, Alkaline Phosphatase 173 H, Total Protein 4.8 L, Albumin 1.2 L, Globulin 3.6 Micro: Microbiology 07/01/21 21:55 Blood Culture (Wb) - Left Wrist Blood Culture - Preliminary No growth in 48 hours. 07/01/21 21:45 Blood Culture (Wb) - Right Wrist Blood Culture - Preliminary No growth in 48 hours. 07/02/21 02:52 Stool C. difficile GDH Antigen & Toxins - Final Toxigenic C. difficile 07/02/21 02:52 Stool C. difficile DNA Amplification - Final 07/01/21 19:30 Stool Enteric Bacteriology - Final Physical Exam Const alert Orientation / Consciousness: confused, disoriented and lethargic HEENT head/scalp atraumatic and moist oral mucous membranes Head and Scalp: normocephalic Eyes conjunctivae normal Neck no lymphadenopathy, supple and no JVD Resp no retractions, no use of accessory muscles and clear to auscultation bilaterally Effort and Inspection: tachypneic and labored Cardio regular rhythm, no murmurs and no JVD Rate: tachycardic GI normal to inspection, nondistended, normoactive bowel sounds, soft to palpation and non-tender Extremity normal to inspection, full ROM and no clubbing, cyanosis or edema Skin no rashes or lesions noted, no wounds and skin turgor normal Neuro CN's II-XII intact bilaterally Psych affect normal Assessment & Plan Assessment/Plan (1) Encephalopathy: (2) Fracture of hip, right, closed: PLAN: Day 3 Discharge planning: To be determined. 1) acute encephalopathy secondary to toxigenic C. difficile Patient's overall clinical status has not changed much for admission as he is still acutely confused and cannot provide much insight into his condition. Vital signs still elevated with tachypnea, tachycardia and hypotension. C. difficile antigen and toxin positive. White count improved from yesterday currently 16.9, was 22. Lactate elevated at 2.7 on admission. Blood cultures demonstrate no growth. Vancomycin 125 mg p.o. 4 times daily initiated, sedating medications discontinued. 2) closed right hip fracture Hip x-ray reveals a displaced subcapital right hip fracture. Orthopedics consulted and believes patient is not a good candidate for surgery given his ongoing medical problems at this time. They will continue to follow and reevaluate for hemiarthroplasty. 3) hypotension BP has been on the lower end of normal to hypertensive throughout admission. Last reading 97/59. Initiate fluid bolus and continue with continuous fluids. We will hold antihypertensive regimen at this time. 4) ARCADIO on CKD stage IIIb Creatinine worsening from admission despite continuous fluid administration, creatinine currently 3.3. Nephrology consult ordered, kidney and bladder consult ordered, continue to monitor BMP. 5) HTN Hold hypertensive regimen due to hypotension. 6) GERD Continue PPI. 7) tachybradycardia syndrome Status post pacemaker, rate currently controlled. DVT prophylaxis - Lovenox Patient seen by Jerry Lopez PA-C, under the supervision of Dr. Corea. Documented by User: Dr. Aundrea Corea MD 07/04/21 11:38 Objective Data Lab / Micro Data Result Diagrams: 07/04/21 05:53 07/04/21 05:53 Charges/Coding Addendum Addendum: This patient was seen in conjunction with MAXIMILIAN Manrique. I have independently interviewed and examined the patient and reviewed pertinent historical, laboratory, and other data. Please refer to MAXIMILIAN Manrique's note for his patient's presentation, findings, and recommendations. I have reviewed and his note and concur with his documentation Patient was seen and examined. Patient remains confused. Blood pressure was low. Received fluid boluses. Physical Exam: Gen: Comfortable, not pale, not jaundiced CVS:HS I +II, regular, no murmurs RESP: Diminished at lung bases GI: BS present and normal, soft, nontender, no palpable organs EXT:No edema ASSESSMENT: 1. Acute metabolic encephalopathy, worsening today, exacerbated by underlying cognitive impairment, current fracture, uncontrolled pain, hearing impairment 2. Acute C. difficile infection 3. Closed right hip fracture 4. Hypertension 5. ARCADIO on CKD stage IIIb 6. GERD Plan: Continue on oral vancomycin Nephrology consult Continue IV fluid Ultrasound of the kidney and bladder Bladder scan Repeat blood work in a.m. Visit Charges Inpatient E&M: 79597 Subs Hosp L2
[2021-07-04 11:43] LABS: Mucous, Urine 0 SEEN /hpf (<or=2+)
[2021-07-04 11:44] LABS: Color, Urine Amber (Yellow); Glucose, Dipstick Normal (Normal); Ketone-Dipstick 5 mg/dl (Negative); Leukocyte Esterase-Dipstick 25 /ul (Negative); Nitrite-Dipstick Positive (Negative); Occult Blood-Urine 25 /ul (Negative); Protein-Dipstick 30 mg/dl (Negative); Urine Clarity Cloudy (Clear); Urine Urobilinogen 1 mg/dl (Normal)
[2021-07-04 11:48] LABS: Urine Bilirubin Dipstick 3 mg/dL (Negative)
[2021-07-04 11:51] LABS: Bacteria 2+ /hpf (None Seen); Hyaline Cast 0-5 SEEN /lpf (0-5); Red Blood Cells-Urine 0-5 SEEN /hpf (0-5); Squamous Epithelial Cells - UA 0-5 SEEN /hpf (0-5); White Blood Cells 0-5 SEEN /hpf (0-5)
[2021-07-04] MEDS: Menthol/Lanolin/Calamine/Znox 113 GM Tube 1 APPLIC TOPICAL (13:38)
--- NOTE | 2021-07-04 15:39 | PCM.DC ---
Discharge Instructions Diet Discharge Diet: No restrictions Activity Discharge Activity: Return to Normal Activity Follow Up Care Test Results: Test results from this visit will be discussed in further detail at your follow-up appointment, if applicable. Discharge Plan Admission Admit Date/Time: 07/01/21 15:41 Primary Reason for Your Visit: Acute C. diff/ARCADIO Attending Provider: Aundrea Corea Primary Care Provider: Clovis Davila Consulting Providers: Efrain Welsh ; Cecelia Pinto ; Theo Tay ; Angela German ; Cinda Guevara ; Crystal Will ; Dior Chase TRAVELING CONSTRUCTION SUPERINTENDENT Discharge Orders/Prescriptions Prescriptions: No Action fluticasone propionate 1 SPRAY spray,suspension 1 spray NASAL BID RF: 0 cholecalciferol (vitamin D3) 1,000 UNIT tablet 1,000 unit PO DAILY RF: 0 furosemide 40 mg tablet 40 mg PO DAILY RF: 0 carvedilol 6.25 mg tablet 6.25 mg PO BID RF: 0 omeprazole 40 mg capsule,delayed release(DR/EC) 40 mg PO DAILY RF: 0 rosuvastatin 40 mg tablet 40 mg PO QHS RF: 0 acetaminophen 500 mg Tablet 500 - 1,000 mg PO Q6H PRN (Reason: Back Pain) RF: 0 aspirin 81 mg Tablet,Chewable 81 mg PO BREAKFAST Qty: 0 RF: 0 valsartan 40 mg Tablet 40 mg PO BID RF: 0 Referrals / Follow Up: Clovis Davila MD [Primary Care Provider] - Disposition Disposition (needs filled in before D/C Order can be placed): Hospice in Medical Facility
--- NOTE | 2021-07-04 15:40 | DS.PCM_ITS ---
Providers Date of Admission: 07/01/21 Date of Discharge: 07/04/21 Primary Care Physician: Dr. Clovis Davila MD Consultations 07/04/21 07:19 Consult: Nephrology Routine Consulting Provider: Efrain Welsh Reason for Consult: ARCADIO EMERGENT Consult: No Notified: Yes Date Notified: 07/04/21 Time Notified: 07:19 Method of Notification: Answering Service 07/04/21 13:08 Consult: Hospice / Palliative Care Routine Consulting Provider: [facility] Reason for Consult: End of life care. EMERGENT Consult: No Notified: Yes Date Notified: 07/04/21 Time Notified: 13:48 Method of Notification: Verbal Reason For Visit: METABOLIC ENCEPHALOPATHY Diagnosis Discharge Diagnosis (1) Encephalopathy: Status: Acute Code(s): G93.40 - Encephalopathy, unspecified (2) Fracture of hip, right, closed: Status: Acute Code(s): S72.001A - Fracture of unspecified part of neck of right femur, initial encounter for closed fracture (3) Acute on chronic kidney failure: Status: Acute Code(s): N17.9 - Acute kidney failure, unspecified; N18.9 - Chronic kidney disease, unspecified (4) C. difficile diarrhea: Status: Acute Code(s): A04.72 - Enterocolitis due to Clostridium difficile, not specified as recurrent (5) Chronic systolic CHF (congestive heart failure): Status: Chronic Code(s): I50.22 - Chronic systolic (congestive) heart failure (6) Hypertension: Status: Chronic Code(s): I10 - Essential (primary) hypertension Medications at Discharge Home Medications cholecalciferol (vitamin D3) 1,000 unit PO DAILY 11/01/19 fluticasone propionate 1 spray NASAL BID 11/01/19 acetaminophen 500 - 1,000 mg PO Q6H PRN 06/03/21 carvedilol 6.25 mg PO BID 06/03/21 furosemide 40 mg PO DAILY 06/03/21 omeprazole 40 mg PO DAILY 06/03/21 rosuvastatin 40 mg PO QHS 06/03/21 aspirin 81 mg PO BREAKFAST #0 tab 06/05/21 valsartan 40 mg PO BID 07/01/21 Hospital Course Operations None Procedures None Summary of Care Provided Minutes Spent on Discharge: 50 Hospital Course: 81-year-old male with past medical history of tachybradycardia syndrome, recently admitted to the hospital and discharged for acute metabolic encephalopathy secondary to pneumonia. In that admission, patient was found to have a low EF of 20% with severe global hypokinesia of the left ventricle on 2D echo. Cardiology was consulted in the admission and patient was discharged home with a LifeVest. Patient was brought to the ED on 07/01/21 after a fall and found to have a proximal femoral fracture seen on x-ray. Patient was said to be having diarrhea that started a week prior to admission. Admitting chest x-ray was nonsignificant. Patient was found to be confused. He was started on antibiotics. Stool studies were significant for acute C. difficile. IV Antibiotics were discontinued. Patient was started on oral vancomycin for C. difficile. He was continued on IV fluids. He however had worsening kidney function on top of his CKD stage IIIb. Patient continued to be confused. He has hearing loss and does not have his hearing aids in the hospital. He also has underlying cognitive impairment. During the course of the hospital stay, patient had periods of hypotension that resolved temporarily with IV fluid boluses. Orthopedics was consulted in this hospital stay and he was conservatively managed. He was said not to be a surgical candidate in the light of his multiple acute medical conditions. Patient continued to be hypotensive despite being on continuous IV fluids. His renal function also doubled and worsened. Patient's overall care was discussed with his family. His CODE STATUS was made DNR CC. Family was agreeable to hospice. Patient was discharged to the inpatient hospice facility. Physical Exam Narrative Physical Exam: Gen: Comfortable, alert, confused, not pale, not jaundiced CVS:HS I +II, regular, no murmurs RESP: Diminished at lung bases GI: BS present and normal, soft, nontender, no palpable organs EXT:No edema Weight / BMI Weight Weight: 74.843 kg Body Mass Index (BMI) 24.3 ABG / Lab / Microbiology Data Result Diagrams: 07/04/21 05:53 07/04/21 05:53 Laboratory: Laboratory Results - last 24 hr 07/03/21 18:03: Ammonia < 10.0 L 07/03/21 18:03: Sodium 138, Potassium 4.3, Chloride 107, Carbon Dioxide 22.0, Anion Gap 9, BUN 56 H, Creatinine 3.24 H, Estim Creat Clear Calc 17.58, Est GFR (MDRD) Af Amer 24 L, Est GFR (MDRD) Non-Af 20 L, BUN/Creatinine Ratio 17.3, Glucose 168 H, Calcium 7.3 L 07/04/21 05:53: WBC 16.9 H, RBC 5.39, Hgb 16.0, Hct 49.0, MCV 90.9, MCH 29.7, MCHC 32.7, RDW Std Deviation 50.4 H, RDW Coeff of Giovani 15.3 H, Plt Count 118 L, MPV 9.8, Immature Gran % (Auto) 2.000 H, Neut % (Auto) 87.8 H, Lymph % (Auto) 4.8 L, [place] % (Auto) 5.1, Eos % (Auto) 0.2, Baso % (Auto) 0.1, Absolute Neuts (auto) 14.9 H, Absolute Lymphs (auto) 0.82 L, Nucleated RBC % 0, Differential Comment SCANNED 07/04/21 05:53: Sodium 138, Potassium 4.4, Chloride 110 H, Carbon Dioxide 20.0 L , Anion Gap 8, BUN 62 H, Creatinine 3.32 H, Estim Creat Clear Calc 17.15, Est GFR (MDRD) Af Amer 23 L, Est GFR (MDRD) Non-Af 19 L, BUN/Creatinine Ratio 18.7, Glucose 115 H, Calcium 7.7 L, Phosphorus 4.2, Magnesium 2.3 07/04/21 05:53: Total Bilirubin 0.40, Direct Bilirubin 0.18, AST 247 H, ALT 186 H, Alkaline Phosphatase 173 H, Total Protein 4.8 L, Albumin 1.2 L, Globulin 3.6 07/04/21 10:00: Urine Color [place], Urine Clarity Cloudy, Urine pH 5.0, Ur Specific [place] 1.020, Urine Protein 30 H, Urine Glucose (UA) Normal, Urine Ketones 5 H, Urine Occult Blood 25 H, Urine Nitrite Positive H, Urine Bilirubin 3 H, Urine Urobilinogen 1 H, Ur Leukocyte Esterase 25 H, Urine RBC 0-5 SEEN, Urine WBC 0-5 SEEN, Ur Squamous Epith Cells 0-5 SEEN, Urine Bacteria 2+, Hyaline Casts 0-5 SEEN, Urine Mucus 0 SEEN Microbiology: Microbiology 07/01/21 21:55 Blood Culture (Wb) - Left Wrist Blood Culture - Preliminary No growth in 48 hours. 07/01/21 21:45 Blood Culture (Wb) - Right Wrist Blood Culture - Preliminary No growth in 48 hours. 07/02/21 02:52 Stool C. difficile GDH Antigen & Toxins - Final Toxigenic C. difficile 07/02/21 02:52 Stool C. difficile DNA Amplification - Final 07/01/21 19:30 Stool Enteric Bacteriology - Final D/C Instructions Discharge Diet: No restrictions Meaningful Use Info Meaningful Use Diagnoses (Choose all that apply): None applicable Discharge Plan Admission Admit Date/Time: 07/01/21 15:41 Primary Reason for Your Visit: Acute C. diff/ARCADIO Attending Provider: Aundrea Corea Primary Care Provider: Clovis Davila Consulting Providers: Efrain Welsh ; Cecelia Pinto ; Theo Tay ; Angela German ; Cinda Guevara ; Crystal Will ; Dior Chase SALES ROUTE DRIVER HELPER Discharge Orders/Prescriptions Prescriptions: No Action fluticasone propionate 1 SPRAY spray,suspension 1 spray NASAL BID RF: 0 cholecalciferol (vitamin D3) 1,000 UNIT tablet 1,000 unit PO DAILY RF: 0 furosemide 40 mg tablet 40 mg PO DAILY RF: 0 carvedilol 6.25 mg tablet 6.25 mg PO BID RF: 0 omeprazole 40 mg capsule,delayed release(DR/EC) 40 mg PO DAILY RF: 0 rosuvastatin 40 mg tablet 40 mg PO QHS RF: 0 acetaminophen 500 mg Tablet 500 - 1,000 mg PO Q6H PRN (Reason: Back Pain) RF: 0 aspirin 81 mg Tablet,Chewable 81 mg PO BREAKFAST Qty: 0 RF: 0 valsartan 40 mg Tablet 40 mg PO BID RF: 0 Referrals / Follow Up: Clovis Davila MD [Primary Care Provider] - Disposition Disposition (needs filled in before D/C Order can be placed): Hospice in Medical Facility Charges/Coding Visit Charges Inpatient E&M: 31059 Disch Hosp
--- NOTE | 2021-07-04 16:20 | NURSING ---
Called report to TIMOTHY Morse at [facility]. Transport to medicinal plant picker at 1700.
== END 2021-07-04 16:17 | disposition hospice, inpatient (51) | DRG 535 ==
LOC: ED 15:34 → PCU 07-02 07:12
PROVIDERS: Physician Assistant; Admitting Provider Hospitalist; Emergency Provider Emergency Medicine; PCP Family Medicine; Visit Provider Internal Medicine
DX: S72.001A Fracture of unspecified part of neck of right femur, initial encounter for closed fracture (principal); G93.41 Metabolic encephalopathy; E87.2 Acidosis; N17.9 Acute kidney failure, unspecified; I50.22 Chronic systolic (congestive) heart failure; A04.72 Enterocolitis due to Clostridium difficile, not specified as recurrent; W19.XXXA Unspecified fall, initial encounter; I13.10 Hypertensive heart and chronic kidney disease without heart failure, with stage 1 through stage 4 chronic kidney disease, or unspecified chronic kidney disease; N18.32 Chronic kidney disease, stage 3b; R29.6 Repeated falls; J45.909 Unspecified asthma, uncomplicated; E78.5 Hyperlipidemia, unspecified; K21.9 Gastro-esophageal reflux disease without esophagitis; Z95.0 Presence of cardiac pacemaker; Z66 Do not resuscitate; H91.90 Unspecified hearing loss, unspecified ear; R41.89 Other symptoms and signs involving cognitive functions and awareness; E87.6 Hypokalemia
CPT/HCPCS: 36415; 70450; 71045; 73502; 80048; 80053; 80076; 81001; 81002; 82140; 82962; 83605; 83735; 84100; 85025; 87040; 87493; 87506; 90715; 92526; 92610; 93005; 97802; 99285; J7030; J7040; J7120; A4216; J0295